=== PATIENT | female | born 1990 | race Caucasian/White ===

== ENCOUNTER 2021-05-15 17:27 | Emergency (ER) | payer SELFPAY ==
--- NOTE | 2021-05-15 17:49 | EDM.PDOC ---
ED HPI GENERAL MEDICAL PROBLEM - General Chief Complaint: ENT Problem Stated Complaint: ear pain Time Seen by Provider: 05/15/21 17:40 Source of Information: Reports: Patient History Limitations: Reports: No Limitations - History of Present Illness INITIAL COMMENTS - FREE TEXT/NARRATIVE: This patient is a 30 year old female that presents to the ER. Patient reports that for 1 week having left ear pain and congestion. She reports she has not been seen by PCP or anyone else for this 1 week complaint. Patient denies abx or any meds for it. Patient denies encinas, dizziness, n, v, d, f, cough. Onset Date: 05/08/21 Duration: Week(s): (1) Quality: Reports: Ache Severity: Moderate Improves with: Reports: None Worsens with: Reports: None Associated Symptoms: Reports: No Other Symptoms. Denies: Confusion, Chest Pain, Cough, cough w sputum, Diaphoresis, Fever/Chills, Headaches, Loss of Appetite, Malaise, Nausea/Vomiting, Rash, Seizure, Shortness of Breath, Syncope, Weakness Left Ear Pain Score (Numeric/FACES): 10 - Related Data Allergies Allergy/AdvReac Type Severity Reaction Status Date / Time No Known Allergies Allergy Verified 05/15/21 17:29 Home Meds: Home Meds Amoxicillin 1,000 mg PO TID 10 Days #60 tab 05/15/21 [Rx] PARoxetine HCL [Paroxetine HCl] 20 mg PO DAILY 05/15/21 [History] busPIRone HCl [Buspirone HCl] 15 mg PO BID 05/15/21 [History] hydrOXYzine pamoate [Hydroxyzine Pamoate] 1 - 2 cap PO ASDIRECTED PRN 05/15/21 [History] traZODone HCl [Trazodone HCl] 50 - 100 mg PO BEDTIME PRN 05/15/21 [History] Past Medical History Psychiatric History: Reports: Anxiety, Depression - Infectious Disease History Infectious Disease History: Reports: None - Past Surgical History GI Surgical History: Reports: Cholecystectomy Female Surgical History: Reports: Section Social & Family History - Tobacco Use Tobacco Use Status *Q: Never Tobacco User - Caffeine Use Caffeine Use: Reports: Coffee - Recreational Drug Use Recreational Drug Use: No ED ROS ENT - Review of Systems Review Of Systems: See Below Constitutional: Reports: No Symptoms HEENT: Reports: Ear Pain (left), Sinus Problem (congestion). Denies: Rhinitis Respiratory: Reports: No Symptoms. Denies: Shortness of Breath, Cough, Sputum Cardiovascular: Reports: No Symptoms Endocrine: Reports: No Symptoms GI/Abdominal: Reports: No Symptoms : Reports: No Symptoms Musculoskeletal: Reports: No Symptoms Skin: Reports: No Symptoms Neurological: Reports: No Symptoms Psychiatric: Reports: No Symptoms Hematologic/Lymphatic: Reports: No Symptoms Immunologic: Reports: No Symptoms ED EXAM, ENT - Physical Exam Exam: See Below Exam Limited By: No Limitations General Appearance: Alert, WD/WN, No Apparent Distress Eye Exam: Bilateral Eye: PERRL Ears: Normal External Exam, Normal Canal, Hearing Grossly Normal, TM Bulging (left), TM Dullness (left), TM Erythema (left). No: Hearing Loss, Auricular Erythema, Auricular Tenderness, TM Perforation, TM Obscured by Cerumen Nose: Normal Inspection, Normal Mucousa, No Blood Mouth/Throat: Normal Inspection, Normal Gums, Normal Lips, Normal Oropharynx, Normal Teeth Head: Atraumatic, Normocephalic Neck: Normal Inspection, Supple, Non-Tender, Full Range of Motion Respiratory/Chest: No Respiratory Distress, Lungs Clear, Normal Breath Sounds, No Accessory Muscle Use Cardiovascular: Normal Peripheral Pulses, Regular Rate, Rhythm, No Edema, No Gallop, No JVD, No Murmur, No Rub Back: Normal Inspection Extremities: Normal Inspection, No Pedal Edema, Normal Capillary Refill Neurological: Alert, Oriented Psychiatric: Normal Affect, Normal Mood Skin: Warm, Dry, Intact, Normal Color, No Rash Lymphatic: No Adenopathy Course - Vital Signs Last Recorded V/S: Last Vital Signs Temp 98.6 F 05/15/21 17:27 Pulse 88 05/15/21 17:27 Resp 16 05/15/21 17:27 BP 128/89 05/15/21 17:27 Pulse Ox 98 05/15/21 17:27 - Orders/Labs/Meds Meds: Medications Discontinued Medications Generic Name Dose Route Start Last Admin Trade Name Pina PRN Reason Stop Dose Admin Amoxicillin 1,000 mg 05/15/21 17:49 Amoxicillin 500 Mg Cap PO 05/15/21 17:50 ONETIME ONE - Re-Assessments/Exams Free Text/Narrative Re-Assessment/Exam: 05/15/21 17:40 Patient reports something for pain. She was educated about over the counter Tylenol, Motrin, and ear drops. Departure - Departure Time of Disposition: 17:46 Disposition: Home, Self-Care 01 Condition: Good Clinical Impression: Otitis media Qualifiers: Otitis media type: suppurative Chronicity: acute Laterality: left Recurrence: non-recurrent Spontaneous tympanic membrane rupture: without spontaneous rupture Qualified Code(s): H66.002 - Acute suppurative otitis media without spontaneous rupture of ear drum, left ear - Discharge Information *PRESCRIPTION DRUG MONITORING PROGRAM REVIEWED*: Not Applicable *COPY OF PRESCRIPTION DRUG MONITORING REPORT IN PATIENT SAM: Not Applicable Prescriptions: Amoxicillin 1,000 mg PO TID 10 Days #60 tab Instructions: Otitis Media, Adult, [id number] Forms: ED Department Discharge Additional Instructions: Followup with your primary care provider for a recheck in 72 hours if needed Return to the ER for worsening of condition or emergent concerns Motrin or Tylenol for pain Over the counter ear drops for pain Nasal sprays for congestion such as Afrin (May only use for 3 days) Amoxicillin 500mg 2 pills three times a day for 10 days #60 no refill Sent to [facility] Sepsis Event Note (ED) - Evaluation Sepsis Screening Result: No Definite Risk - Focused Exam Vital Signs: Vital Signs Temp Pulse Resp BP Pulse Ox 05/15/21 17:27 98.6 F 88 16 128/89 98 - Assessment/Plan Plan: PLEASE SEE RN NOTE FOR PFSH
[2021-05-15] MEDS: Amoxicillin 500 MG Cap PO ONE (17:52)
== END 2021-05-15 17:55 | disposition home or self-care (01) ==
LOC: CC.ED 17:27
DX: H66.002 Acute suppurative otitis media without spontaneous rupture of ear drum, left ear (principal)
CPT/HCPCS: 99283; A9270-GY

== ENCOUNTER 2021-09-18 17:31 | Emergency (ER) | payer SELFPAY ==
--- NOTE | 2021-09-18 17:53 | EDM.PDOC ---
ED HPI GENERAL MEDICAL PROBLEM - General Chief Complaint: Headache Stated Complaint: [place], dizzy for 1 week Time Seen by Provider: 09/18/21 17:38 Source of Information: Reports: Patient History Limitations: Reports: No Limitations - History of Present Illness INITIAL COMMENTS - FREE TEXT/NARRATIVE: Lucretia is a 30 year old female who presents today with a week long headache that is getting worse. Relates has never had a headache like this. Feels like "head is going to blow off". Feels dizzy. Vision is blurry at times. Admits to light sensitivity. Nausea without vomiting. No cough, chest congestion, sore throat or fever. Did test recently for Covid and was negative. States hands and feet feel tingly at times but no other neurological changes. Onset: Gradual Duration: Day(s):, Getting Worse Location: Reports: Head Quality: Reports: Throbbing Severity: Severe Context: Denies: Trauma Associated Symptoms: Reports: Headaches, Nausea/Vomiting. Denies: Confusion, Chest Pain, Cough, Diaphoresis, Fever/Chills, Loss of Appetite, Malaise, Shortness of Breath, Weakness Headache Pain Score (Numeric/FACES): 10 - Related Data Allergies Allergy/AdvReac Type Severity Reaction Status Date / Time No Known Allergies Allergy Verified 09/18/21 17:32 Home Meds: Home Meds PARoxetine HCL [Paroxetine HCl] 20 mg PO DAILY 05/15/21 [History] busPIRone HCl [Buspirone HCl] 15 mg PO BID 05/15/21 [History] hydrOXYzine pamoate [Hydroxyzine Pamoate] 1 - 2 cap PO ASDIRECTED PRN 05/15/21 [History] traZODone HCl [Trazodone HCl] 50 - 100 mg PO BEDTIME PRN 05/15/21 [History] Past Medical History Psychiatric History: Reports: Anxiety, Depression - Infectious Disease History Infectious Disease History: Reports: None - Past Surgical History GI Surgical History: Reports: Cholecystectomy Female Surgical History: Reports: Section Social & Family History - Family History Family Medical History: No Pertinent Family History - Tobacco Use Tobacco Use Status *Q: Never Tobacco User - Caffeine Use Caffeine Use: Reports: Coffee - Recreational Drug Use Recreational Drug Use: No ED ROS GENERAL - Review of Systems Review Of Systems: See Below Constitutional: Reports: Fatigue. Denies: Fever, Chills, Malaise, Weakness, Decreased Appetite HEENT: Reports: Vision Change. Denies: Ear Pain, Rhinitis, Sinus Problem, Throat Pain, Vertigo Respiratory: Denies: Shortness of Breath, Cough Cardiovascular: Reports: Lightheadedness. Denies: Chest Pain, Edema Endocrine: Denies: Fatigue GI/Abdominal: Reports: Nausea. Denies: Abdominal Pain, Constipation, Diarrhea, Vomiting : Reports: No Symptoms Musculoskeletal: Denies: Neck Pain Skin: Reports: No Symptoms Neurological: Reports: Dizziness, Headache, Weakness - Physical Exam Exam: See Below Exam Limited By: No Limitations General Appearance: Alert, WD/WN, No Apparent Distress Eye Exam: Bilateral Eye: EOMI, PERRL Ears: Normal External Exam, Normal TMs Nose: Normal Inspection, Normal Mucosa, No Blood Throat/Mouth: Normal Inspection, Normal Oropharynx Head Exam: Normocephalic Neck: Normal Inspection, Supple, Non-Tender Respiratory/Chest: No Respiratory Distress, Lungs Clear, Normal Breath Sounds Cardiovascular: Regular Rate, Rhythm GI/Abdominal: Normal Bowel Sounds, Soft, Non-Tender Neuro Exam (Abbreviated): Alert, Oriented, CN II-XII Intact, Normal Cognition, Normal Gait, Normal Reflexes, No Motor/Sensory Deficits Extremities: Normal Inspection, No Pedal Edema Skin Exam: Warm, Dry Course - Vital Signs Last Recorded V/S: Last Vital Signs Temp 98.1 F 09/18/21 17:33 Pulse 93 09/18/21 17:33 Resp 16 09/18/21 17:33 BP 130/54 L 09/18/21 17:33 Pulse Ox 100 09/18/21 17:33 - Orders/Labs/Meds Orders: Active Orders 24 hr Category Date Time Status Head wo Cont [CT] Stat Exams 09/18/21 17:47 Taken Departure - Departure Time of Disposition: 18:35 Disposition: Home, Self-Care 01 Condition: Good Clinical Impression: Migraine - Discharge Information *PRESCRIPTION DRUG MONITORING PROGRAM REVIEWED*: No *COPY OF PRESCRIPTION DRUG MONITORING REPORT IN PATIENT SAM: No Instructions: Migraine Headache, [id number] Forms: ED Department Discharge Additional Instructions: 1. Push fluids 2. Alternate ibuprofen and tylenol for further headache 3. Ice or heat to neck may help alleviate discomfort 4. Follow up with primary care provider for persistent concerns. Sepsis Event Note (ED) - Evaluation Sepsis Screening Result: No Definite Risk - Focused Exam Vital Signs: Vital Signs Temp Pulse Resp BP Pulse Ox 09/18/21 17:33 98.1 F 93 16 130/54 L 100 - My Orders Last 24 Hours: My Active Orders 09/18/21 17:47 Head wo Cont [CT] Stat - Assessment/Plan Last 24 Hours: My Active Orders 09/18/21 17:47 Head wo Cont [CT] Stat
[2021-09-18] MEDS ORDERED: Ketorolac 60 MG/2 ML SDV IM ONE (18:33)
[2021-09-18] MEDS ORDERED: Ondansetron 4 MG/2 ML SDV IM STA (18:33)
== END 2021-09-18 18:54 | disposition home or self-care (01) ==
LOC: CC.ED 17:31
DX: G43.909 Migraine, unspecified, not intractable, without status migrainosus (principal)
CPT/HCPCS: 70450; 96372; 99284; J1885; J2405

== ENCOUNTER 2021-11-04 20:38 | Inpatient (IN) | payer BC ==
[2021-11-04] MEDS ORDERED: Sodium Chloride 0.9% 10 ML Syringe FLUSH PRN (21:15)
--- NOTE | 2021-11-04 21:58 | EDM.PDOC ---
ED HPI GENERAL MEDICAL PROBLEM - General Chief Complaint: Respiratory Problem Stated Complaint: cough Time Seen by Provider: 11/04/21 21:02 Source of Information: Reports: Patient History Limitations: Reports: No Limitations - History of Present Illness INITIAL COMMENTS - FREE TEXT/NARRATIVE: This is a 30-year-old female patient that presents to the emergency department with complaints of chest pain, shortness of breath, nasal congestion with onset being about 1 week ago on since Sunday. Reports that symptoms really have not changed since that time. Denies loss of taste, fever, or nausea vomiting. Denies any feelings of being sweaty. States she just does not feel well. All the symptoms started at approximately the same time. Patient describes the chest pain to the anterior chest and denies radiation of pain. States her shortness of breath is all the time and remains about the same with exertion. Onset: Gradual Onset Date: 10/29/21 Location: Reports: Chest Severity: Moderate Worsens with: Reports: None Associated Symptoms: Reports: Shortness of Breath. Denies: Nausea/Vomiting Treatments TRANSPORTATION LEAD: Reports: NSAIDS Chest Pain Score (Numeric/FACES): 5 - Related Data Allergies Allergy/AdvReac Type Severity Reaction Status Date / Time No Known Allergies Allergy Verified 11/04/21 23:16 Home Meds: Home Meds PARoxetine HCL [Paroxetine HCl] 20 mg PO DAILY 05/15/21 [History] busPIRone HCl [Buspirone HCl] 15 mg PO BID 05/15/21 [History] hydrOXYzine pamoate [Hydroxyzine Pamoate] 1 - 2 cap PO ASDIRECTED PRN 05/15/21 [History] traZODone HCl [Trazodone HCl] 50 - 100 mg PO BEDTIME PRN 05/15/21 [History] Naproxen 1 tab PO ASDIRECTED PRN 11/04/21 [History] Past Medical History Psychiatric History: Reports: Anxiety, Depression - Infectious Disease History Infectious Disease History: Reports: None - Past Surgical History GI Surgical History: Reports: Cholecystectomy Female Surgical History: Reports: Section Social & Family History - Family History Family Medical History: No Pertinent Family History - Caffeine Use Caffeine Use: Reports: Coffee ED ROS GENERAL - Review of Systems Review Of Systems: See Below Constitutional: Reports: Weakness, Fatigue. Denies: Fever, Chills HEENT: Reports: Sinus Problem (Nasal congestion) Respiratory: Reports: Shortness of Breath, Cough, Other (Sneezing) Cardiovascular: Reports: Chest Pain Endocrine: Reports: Fatigue GI/Abdominal: Denies: Abdominal Pain, Nausea, Vomiting : Denies: Discharge, Dysuria, Flank Pain Musculoskeletal: Denies: Neck Pain, Shoulder Pain, Arm Pain, Back Pain Skin: Reports: Cyanosis Neurological: Denies: Confusion, Dizziness Psychiatric: Reports: No Symptoms Hematologic/Lymphatic: Reports: No Symptoms Immunologic: Reports: No Symptoms ED EXAM, GENERAL - Physical Exam Exam: See Below Exam Limited By: No Limitations General Appearance: Alert, Moderate Distress Eye Exam: Bilateral Eye: Normal Inspection, PERRL Ears: Normal External Exam, Hearing Grossly Normal Nose: No Blood, Nasal Drainage Throat/Mouth: Normal Voice, Perioral Cyanosis, Other (Dry lips) Head: Atraumatic, Normocephalic Neck: Normal Inspection, Supple, Non-Tender, Full Range of Motion Respiratory/Chest: Lungs Clear, Decreased Breath Sounds, Other (Anterior mid upper chest pain) Cardiovascular: Regular Rate, Rhythm, No Gallop, No Murmur, No Rub GI/Abdominal: Normal Bowel Sounds, Soft, Non-Tender, No Distention, No Mass (Female) Exam: Deferred Rectal (Female) Exam: Deferred Back Exam: Normal Inspection, Full Range of Motion Extremities: Normal Inspection, Normal Range of Motion, No Pedal Edema Neurological: Alert, Oriented, Normal Cognition Psychiatric: Normal Affect, Normal Mood Skin Exam: Warm, Dry, Intact Lymphatic: No Adenopathy Course - Vital Signs Last Recorded V/S: Last Vital Signs Temp 97.2 F 11/04/21 23:12 Pulse 97 11/04/21 23:12 Resp 11 L 11/04/21 23:12 BP 105/72 11/04/21 23:12 Pulse Ox 92 L 11/04/21 23:12 - Orders/Labs/Meds Orders: Active Orders 24 hr Category Date Time Status Oxygen Therapy Adult [Oxygen Therapy] [RC] ASDIRECTED Care 11/04/21 21:15 Active Ang Chest [CT] Stat Exams 11/04/21 22:03 Taken CULTURE BLOOD [BC] Stat Lab 11/04/21 23:35 Received CULTURE BLOOD [BC] Stat Lab 11/04/21 23:37 Received INR,PT,PROTHROMBIN TIME [COAG] Stat Lab 11/05/21 00:30 Received Azithromycin [Zithromax] 500 mg Med 11/04/21 23:30 Active Sodium Chloride 0.9% [Normal Saline AdvBag] 250 ml IV Q24H Sodium Chloride 0.9% [Normal Saline] 1,000 ml Med 11/04/21 23:00 Active IV ASDIRECTED Sodium Chloride 0.9% [Saline Flush] Med 11/04/21 21:15 Active 10 ml FLUSH ASDIRECTED PRN Blood Culture x2 Reflex Set [OM.PC] Stat Oth 11/04/21 23:20 Ordered Saline Lock Insert [OM.PC] Routine Oth 11/04/21 21:15 Ordered Medication Orders Sodium Chloride (Normal Saline) 1,000 mls @ 999 mls/hr IV ASDIRECTED ANDREAS Last Admin: 11/04/21 23:00 Dose: 999 mls/hr Documented by: CHARMAINE Azithromycin 500 mg/ Sodium (Chloride) 250 mls @ 250 mls/hr IV Q24H ANDREAS Last Admin: 11/05/21 00:01 Dose: 250 mls/hr Documented by: CHARMAINE Sodium Chloride (Sodium Chloride 0.9% 10 Ml Syringe) 10 ml FLUSH ASDIRECTED PRN PRN Reason: Keep Vein Open Labs: Laboratory Tests 11/04/21 11/04/21 11/04/21 Range/Units 21:25 21:25 21:25 WBC 14.4 H (4.0-11.0) 10^3/uL RBC 4.69 (4.00-5.50) x10^6/uL Hgb 13.4 (12.0-16.0) g/dL Hct 41.2 (37.0-47.0) % MCV 87.8 (83.0-97.0) fL MCH 28.6 (27.0-32.0) pg MCHC 32.5 (32.0-36.0) g/dL RDW Coeff of Amanuel 12.9 (11.0-15.0) % Plt Count 312 (150-400) 10^3/uL Immature Gran % (Auto) 1.0 (0.0-4.9) % Neut % (Auto) 79.8 H (41-71) % Lymph % (Auto) 11.8 L (24-44) % [place] % (Auto) 7.2 (0-10) % Eos % (Auto) 0.1 (0-6) % Baso % (Auto) 0.1 (0-1) % Neut # (Auto) 11.49 H (1.80-8.00) x10^3/uL Lymph # (Auto) 1.70 (0.60-5.00) 10^3/uL [place] # (Auto) 1.03 (0.00-1.50) 10^3/uL Eos # (Auto) 0.02 (0.00-1.50) 10^3/uL Baso # (Auto) 0.02 (0.00-0.50) 10^3/uL Immature Gran # (Auto) 0.14 (0.00-0.49) 10^3/uL D-Dimer, Quantitative 4.21 H (0.00-0.50) Sodium (136-145) mEq/L Potassium (3.5-5.0) mEq/L Chloride (98-106) mEq/L Carbon Dioxide (21-32) mmol/L BUN (7-18) mg/dL Creatinine (0.6-1.0) mg/dL Est Cr Clr Drug Dosing mL/min Estimated GFR (MDRD) (>=60) mL/min Glucose (75-99) mg/dL Lactic Acid (0.4-2.0) mmol/L Calcium (8.4-10.1) mg/dL Total Bilirubin (0.0-1.0) mg/dL AST (15-37) U/L ALT (12-78) U/L Alkaline Phosphatase (46-116) U/L Troponin I High Sens (<=51) pg/mL C-Reactive Protein (0.2-0.8) mg/dL Total Protein (6.4-8.2) g/dL Albumin (3.4-5.0) g/dL Urine Color (YELLOW) Urine Appearance (CLEAR) Urine pH (4.5-8.0) Ur Specific [place] (1.003-1.020) Urine Protein (NEGATIVE) mg/dL Urine Glucose (UA) (NEGATIVE) mg/dL Urine Ketones (NEGATIVE) mg/dL Urine Occult Blood (NEGATIVE) Urine Nitrite (NEGATIVE) Urine Bilirubin (NEGATIVE) Urine Urobilinogen (0.2-1.0) EU/dL Ur Leukocyte Esterase (NEGATIVE) Urine RBC (0-5) /HPF Urine WBC (0-5) /HPF Ur Epithelial Cells (NOT SEEN) /HPF Urine HCG, Qual Urine Opiates Screen (NEGATIVE) Ur Oxycodone Screen (NEGATIVE) Urine Methadone Screen (NEGATIVE) Ur Barbiturates Screen (NEGATIVE) U Tricyclic Antidepress (NEGATIVE) Ur Phencyclidine Scrn (NEGATIVE) Ur Amphetamine Screen (NEGATIVE) U Methamphetamines Scrn (NEGATIVE) Urine MDMA Screen (NEGATIVE) U Benzodiazepines Scrn (NEGATIVE) Urine Cocaine Screen (NEGATIVE) U Marijuana (THC) Screen (NEGATIVE) Ethyl Alcohol (0-3) mg/dL SARS CoV-2 RNA Rapid DEBORA Negative (NEGATIVE) 11/04/21 11/04/21 11/04/21 Range/Units 21:25 22:30 22:30 WBC (4.0-11.0) 10^3/uL RBC (4.00-5.50) x10^6/uL Hgb (12.0-16.0) g/dL Hct (37.0-47.0) % MCV (83.0-97.0) fL MCH (27.0-32.0) pg MCHC (32.0-36.0) g/dL RDW Coeff of Amanuel (11.0-15.0) % Plt Count (150-400) 10^3/uL Immature Gran % (Auto) (0.0-4.9) % Neut % (Auto) (41-71) % Lymph % (Auto) (24-44) % [place] % (Auto) (0-10) % Eos % (Auto) (0-6) % Baso % (Auto) (0-1) % Neut # (Auto) (1.80-8.00) x10^3/uL Lymph # (Auto) (0.60-5.00) 10^3/uL [place] # (Auto) (0.00-1.50) 10^3/uL Eos # (Auto) (0.00-1.50) 10^3/uL Baso # (Auto) (0.00-0.50) 10^3/uL Immature Gran # (Auto) (0.00-0.49) 10^3/uL D-Dimer, Quantitative (0.00-0.50) Sodium 137 (136-145) mEq/L Potassium 4.3 (3.5-5.0) mEq/L Chloride 104 (98-106) mEq/L Carbon Dioxide 32 (21-32) mmol/L BUN 41 H D (7-18) mg/dL Creatinine 1.6 H D (0.6-1.0) mg/dL Est Cr Clr Drug Dosing 45.84 mL/min Estimated GFR (MDRD) 38 L (>=60) mL/min Glucose 159 H D (75-99) mg/dL Lactic Acid (0.4-2.0) mmol/L Calcium 8.1 L (8.4-10.1) mg/dL Total Bilirubin 0.9 (0.0-1.0) mg/dL AST 1090 H* (15-37) U/L ALT 1431 H* (12-78) U/L Alkaline Phosphatase 85 (46-116) U/L Troponin I High Sens 141.1 H* (<=51) pg/mL C-Reactive Protein 16.0 H (0.2-0.8) mg/dL Total Protein 7.0 (6.4-8.2) g/dL Albumin 3.5 (3.4-5.0) g/dL Urine Color Yellow (YELLOW) Urine Appearance Clear (CLEAR) Urine pH 6.0 (4.5-8.0) Ur Specific [place] 1.025 H (1.003-1.020) Urine Protein 100 H (NEGATIVE) mg/dL Urine Glucose (UA) Negative (NEGATIVE) mg/dL Urine Ketones Negative (NEGATIVE) mg/dL Urine Occult Blood Large H (NEGATIVE) Urine Nitrite Negative (NEGATIVE) Urine Bilirubin Negative (NEGATIVE) Urine Urobilinogen 0.2 (0.2-1.0) EU/dL Ur Leukocyte Esterase Trace H (NEGATIVE) Urine RBC 5-10 H (0-5) /HPF Urine WBC Not seen (0-5) /HPF Ur Epithelial Cells Moderate H (NOT SEEN) /HPF Urine HCG, Qual Negative Urine Opiates Screen (NEGATIVE) Ur Oxycodone Screen (NEGATIVE) Urine Methadone Screen (NEGATIVE) Ur Barbiturates Screen (NEGATIVE) U Tricyclic Antidepress (NEGATIVE) Ur Phencyclidine Scrn (NEGATIVE) Ur Amphetamine Screen (NEGATIVE) U Methamphetamines Scrn (NEGATIVE) Urine MDMA Screen (NEGATIVE) U Benzodiazepines Scrn (NEGATIVE) Urine Cocaine Screen (NEGATIVE) U Marijuana (THC) Screen (NEGATIVE) Ethyl Alcohol (0-3) mg/dL SARS CoV-2 RNA Rapid DEBORA (NEGATIVE) 11/04/21 11/04/21 11/04/21 Range/Units 23:35 23:37 23:37 WBC (4.0-11.0) 10^3/uL RBC (4.00-5.50) x10^6/uL Hgb (12.0-16.0) g/dL Hct (37.0-47.0) % MCV (83.0-97.0) fL MCH (27.0-32.0) pg MCHC (32.0-36.0) g/dL RDW Coeff of Amanuel (11.0-15.0) % Plt Count (150-400) 10^3/uL Immature Gran % (Auto) (0.0-4.9) % Neut % (Auto) (41-71) % Lymph % (Auto) (24-44) % [place] % (Auto) (0-10) % Eos % (Auto) (0-6) % Baso % (Auto) (0-1) % Neut # (Auto) (1.80-8.00) x10^3/uL Lymph # (Auto) (0.60-5.00) 10^3/uL [place] # (Auto) (0.00-1.50) 10^3/uL Eos # (Auto) (0.00-1.50) 10^3/uL Baso # (Auto) (0.00-0.50) 10^3/uL Immature Gran # (Auto) (0.00-0.49) 10^3/uL D-Dimer, Quantitative (0.00-0.50) Sodium (136-145) mEq/L Potassium (3.5-5.0) mEq/L Chloride (98-106) mEq/L Carbon Dioxide (21-32) mmol/L BUN (7-18) mg/dL Creatinine (0.6-1.0) mg/dL Est Cr Clr Drug Dosing mL/min Estimated GFR (MDRD) (>=60) mL/min Glucose (75-99) mg/dL Lactic Acid 1.6 (0.4-2.0) mmol/L Calcium (8.4-10.1) mg/dL Total Bilirubin (0.0-1.0) mg/dL AST (15-37) U/L ALT (12-78) U/L Alkaline Phosphatase (46-116) U/L Troponin I High Sens (<=51) pg/mL C-Reactive Protein (0.2-0.8) mg/dL Total Protein (6.4-8.2) g/dL Albumin (3.4-5.0) g/dL Urine Color (YELLOW) Urine Appearance (CLEAR) Urine pH (4.5-8.0) Ur Specific [place] (1.003-1.020) Urine Protein (NEGATIVE) mg/dL Urine Glucose (UA) (NEGATIVE) mg/dL Urine Ketones (NEGATIVE) mg/dL Urine Occult Blood (NEGATIVE) Urine Nitrite (NEGATIVE) Urine Bilirubin (NEGATIVE) Urine Urobilinogen (0.2-1.0) EU/dL Ur Leukocyte Esterase (NEGATIVE) Urine RBC (0-5) /HPF Urine WBC (0-5) /HPF Ur Epithelial Cells (NOT SEEN) /HPF Urine HCG, Qual Urine Opiates Screen Negative (NEGATIVE) Ur Oxycodone Screen Negative (NEGATIVE) Urine Methadone Screen Negative (NEGATIVE) Ur Barbiturates Screen Negative (NEGATIVE) U Tricyclic Antidepress Negative (NEGATIVE) Ur Phencyclidine Scrn Negative (NEGATIVE) Ur Amphetamine Screen Negative (NEGATIVE) U Methamphetamines Scrn Negative (NEGATIVE) Urine MDMA Screen Negative (NEGATIVE) U Benzodiazepines Scrn Negative (NEGATIVE) Urine Cocaine Screen Negative (NEGATIVE) U Marijuana (THC) Screen Negative (NEGATIVE) Ethyl Alcohol < 3 (0-3) mg/dL SARS CoV-2 RNA Rapid DEBORA (NEGATIVE) Meds: Medications Generic Name Dose Route Start Last Admin Trade Name Freq PRN Reason Stop Dose Admin Sodium Chloride 1,000 mls @ 999 mls/hr 11/04/21 23:00 11/04/21 23:00 Normal Saline IV 999 mls/hr ASDIRECTED ANDREAS Administration Azithromycin 500 mg/ Sodium 250 mls @ 250 mls/hr 11/04/21 23:30 11/05/21 00:01 Chloride IV 250 mls/hr Q24H ANDREAS Administration Sodium Chloride 10 ml 11/04/21 21:15 Sodium Chloride 0.9% 10 Ml Syringe FLUSH ASDIRECTED PRN Keep Vein Open Discontinued Medications Generic Name Dose Route Start Last Admin Trade Name Pina PRN Reason Stop Dose Admin Azithromycin Confirm 11/05/21 00:17 Azithromycin 500 Mg Vial Administered 11/05/21 00:18 Dose 500 mg .ROUTE .STK-MED ONE Ceftriaxone Sodium 1 gm 11/04/21 23:22 11/05/21 00:00 Ceftriaxone 1 Gm Vial IVPUSH 11/04/21 23:23 1 gm ONETIME ONE Administration Sodium Chloride Confirm 11/04/21 22:35 11/04/21 23:03 Normal Saline Administered 11/04/21 22:36 Not Given Dose 1,000 mls @ as directed .ROUTE .STK-MED ONE Sodium Chloride 1,000 mls @ 999 mls/hr 11/04/21 22:47 Normal Saline IV 11/04/21 23:47 .BOLUS ONE Iopamidol 100 ml 11/04/21 22:07 11/04/21 22:48 Iopamidol 755 Mg/Ml 100 Ml Bottle IVPUSH 11/04/21 22:08 100 ml ONETIME ONE Administration - Re-Assessments/Exams Free Text/Narrative Re-Assessment/Exam: This is a 30-year-old female patient that presented to the emergency department with onset of chest pain, shortness of breath, and nasal congestion about 6 days ago. Patient states that she just does not feel well. A CBC, CMP, CRP, troponin, D-dimer, UA, and UA hCG were collected. Please see lab results. Troponin is elevated, AST ALT are elevated, D-dimer is elevated, white blood cell count is elevated. A CTA of the chest was completed and will await final read from radiology. An EKG was also obtained. The EKG was reviewed showing a normal sinus rhythm with possible infarct although no definite ST elevation or depression was noted. Free Text/Narrative Re-Assessment/Exam: ER progress note: Spoke with a [facility] hospitalist regarding patient. They are currently unable to accept transfer. After discussing patient's history and physical exam along with lab abnormalities, EKG and CTA chest he suggested further labs to include lactic acid, blood cultures x2, blood alcohol, and urine drug screen. Also suggested procalcitonin and hepatitis screen although those are send out tests and of no benefit at current time. He had pulled out the CTA of the chest and side no indication of PE, however there was evidence of possible right upper lobe pneumonia. Per his recommendation we will obtain labs available and administer 1 g of Rocephin and 500 mg of azithromycin IV. He also suggested calling the [facility]. Shortly after speaking with the hospitalist, the radiologist had called and confirmed findings of no PE and possible right upper lobe pneumonia. Awaiting a callback from the [facility] for further guidance. [facility] was also contacted and there is no ability to transfer to any tertiary care center in the state [facility] according to the [facility]. 11/04/21 23:15 Free Text/Narrative Re-Assessment/Exam: Spoke with internal medicine physician, Dr. Panda, at the [facility]. Discussed patient history and physical exam as well as lab findings, EKG, and CTA results. As well as the additional labs that were suggested by the [place] hospitalist. Dr. Panda suggested to treat the pneumonia with Rocephin and azithromycin unless it was believed that there is a concern for alcohol in which he would change the antibiotic to cefepime. An INR was ordered per recommendation and if normal he believes that the elevated liver enzymes are caused by a cellular injury. If elevated would be more indicative enteric liver disease. Also recommended to repeat a hepatic panel in about 8 hours. A Tylenol level is also discussed and if INR is elevated we will collect this for send out. [facility] also has no bed availability and unable to accept patient in transfer. Plan will be to admit patient to acute inpatient status. Repeat labs will be ordered as recommended. We will continue telemetry. And reevaluate based on laboratory findings and patient's physical condition. 11/05/21 00:05 Departure - Departure Time of Disposition: 00:26 Disposition: Admitted As Inpatient 65 Condition: Undetermined (Stable) Clinical Impression: Elevated liver enzymes, Elevated troponin Right upper lobe pneumonia Qualifiers: Pneumonia type: due to unspecified organism Qualified Code(s): J18.9 - Pneumonia, unspecified organism Elevated white blood cell count Qualifiers: Leukocytosis type: unspecified Qualified Code(s): D72.829 - Elevated white blood cell count, unspecified - Discharge Information *PRESCRIPTION DRUG MONITORING PROGRAM REVIEWED*: Not Applicable *COPY OF PRESCRIPTION DRUG MONITORING REPORT IN PATIENT SAM: Not Applicable Sepsis Event Note (ED) - Evaluation Sepsis Screening Result: No Definite Risk - Focused Exam Vital Signs: Vital Signs Temp Pulse Resp BP Pulse Ox 12/10/21 23:12 97.2 F 97 11 L 105/72 92 L 11/04/21 20:47 97 F 101 H 18 133/73 72 L - Problem List & Annotations (1) Elevated liver enzymes SNOMED Code(s): 624569364 Code(s): R74.8 - ABNORMAL LEVELS OF OTHER SERUM ENZYMES Status: Acute Priority: High Current Visit: Yes (2) Right upper lobe pneumonia SNOMED Code(s): 283503254 Code(s): J18.9 - PNEUMONIA, UNSPECIFIED ORGANISM Status: Acute Priority: High Current Visit: Yes Qualifiers: Pneumonia type: due to unspecified organism Qualified Code(s): J18.9 - Pneumonia, unspecified organism (3) Elevated troponin SNOMED Code(s): 076929798, 071039726, [id number] Code(s): R77.8 - OTHER SPECIFIED ABNORMALITIES OF PLASMA PROTEINS Status: Acute Priority: High Current Visit: Yes (4) Elevated white blood cell count SNOMED Code(s): 864530154, 987974126 Code(s): D72.829 - ELEVATED WHITE BLOOD CELL COUNT, UNSPECIFIED Status: Acute Priority: High Current Visit: Yes Qualifiers: Leukocytosis type: unspecified Qualified Code(s): D72.829 - Elevated white blood cell count, unspecified - Problem List Review Problem List Initiated/Reviewed/Updated: Yes - My Orders Last 24 Hours: My Active Orders 11/04/21 21:15 Oxygen Therapy Adult [Oxygen Therapy] [RC] ASDIRECTED Sodium Chloride 0.9% [Saline Flush] 10 ml FLUSH ASDIRECTED PRN Saline Lock Insert [OM.PC] Routine 11/04/21 23:00 Sodium Chloride 0.9% [Normal Saline] 1,000 ml IV ASDIRECTED 11/04/21 23:20 Blood Culture x2 Reflex Set [OM.PC] Stat 11/04/21 23:30 Azithromycin [Zithromax] 500 mg Sodium Chloride 0.9% [Normal Saline AdvBag] 250 ml IV Q24H 11/04/21 23:35 CULTURE BLOOD [BC] Stat 11/04/21 23:37 CULTURE BLOOD [BC] Stat 11/05/21 00:30 INR,PT,PROTHROMBIN TIME [COAG] Stat - Assessment/Plan Admission H&P: Please use this note as an admission H&P Last 24 Hours: My Active Orders 11/04/21 21:15 Oxygen Therapy Adult [Oxygen Therapy] [RC] ASDIRECTED Sodium Chloride 0.9% [Saline Flush] 10 ml FLUSH ASDIRECTED PRN Saline Lock Insert [OM.PC] Routine 11/04/21 23:00 Sodium Chloride 0.9% [Normal Saline] 1,000 ml IV ASDIRECTED 11/04/21 23:20 Blood Culture x2 Reflex Set [OM.PC] Stat 11/04/21 23:30 Azithromycin [Zithromax] 500 mg Sodium Chloride 0.9% [Normal Saline AdvBag] 250 ml IV Q24H 11/04/21 23:35 CULTURE BLOOD [BC] Stat 11/04/21 23:37 CULTURE BLOOD [BC] Stat 11/05/21 00:30 INR,PT,PROTHROMBIN TIME [COAG] Stat Assessment:: Right upper lobe pneumonia, elevated liver enzymes, elevated troponin, elevated WBC Plan: Admit acute care inpatient telemetry. Plan to repeat labs in morning. Continue antibiotics.
[2021-11-04] MEDS ORDERED: Iopamidol 755 Mg/ML 100 ML Bottle IVPUSH ONE (22:07)
[2021-11-04] MEDS ORDERED: Sodium Chloride 0.9% 1,000 ML ONE (22:35)
[2021-11-04] MEDS ORDERED: Sodium Chloride 0.9% 1,000 ML IV ONE (22:47)
[2021-11-04] MEDS ORDERED: Sodium Chloride 0.9% 1,000 ML IV SCH (23:00)
[2021-11-04] MEDS ORDERED: cefTRIAXone 1 GM Vial IVPUSH ONE (23:22)
[2021-11-04] MEDS ORDERED: Azithromycin 500 MG in Sodium Chloride 0.9% 250 ML IV SCH (23:30)
[2021-11-04 23:46] LABS: AMPHETAMINES,URINE NEGATIVE (NEGATIVE); BARBITURATES,URINE NEGATIVE (NEGATIVE); BENZODIAZEPINE,URINE NEGATIVE (NEGATIVE); MDMA (ECSTASY), URINE NEGATIVE (NEGATIVE); METHADONE,URINE NEGATIVE (NEGATIVE); METHAMPHETAMINES,URINE NEGATIVE (NEGATIVE); OPIATES,URINE NEGATIVE (NEGATIVE); OXYCODONE,URINE NEGATIVE (NEGATIVE); PHENCYCLIDINE,URINE NEGATIVE (NEGATIVE); TCA,URINE NEGATIVE (NEGATIVE)
[2021-11-05] MEDS ORDERED: Azithromycin 500 MG Vial ONE (00:17)
[2021-11-05] MEDS ORDERED: traZODone 50 MG Tab PO PRN ×2 (00:58→01:13)
[2021-11-05] MEDS ORDERED: Codeine/Promethazine 10-6.25 MG/5 ML Syrup 5 ML UD Cup PO PRN (01:25)
[2021-11-05] MEDS ORDERED: Sodium Chloride 0.9% 1,000 ML IV SCH (01:25)
[2021-11-05] MEDS ORDERED: Enoxaparin 30 MG/0.3 ML Syringe SUBCUT SCH (01:25)
[2021-11-05] MEDS: PARoxetine 20 MG Tab PO SCH (07:29)
[2021-11-05] MEDS: busPIRone 5 MG Tab PO SCH ×2 (07:29→19:41)
[2021-11-05] MEDS ORDERED: Lactated Ringers 1,000 ML IV ONE (10:15)
--- NOTE | 2021-11-05 10:32 | PCM.PN ---
- General Info Date of Service: 11/05/21 Admission Dx/Problem (Free Text): 1. Right upper lobe pneumonia 2. Elevated liver enzymes 3. Elevated troponin 4. Elevated WBC Subjective Update: Patient states that she is feeling better today. Denies chest pain and reports that her shortness of breath is improved. Reports feeling tired. Decreased appetite but was able to drink fluids this morning. Denies abdominal pain, nausea, or vomiting. Oxygen saturations 90-92% on 3 LPM via NC. HR 98-104. RR 18. BP 111/69. States she has been able to ambulate to bathroom. Functional Status: Reports: Pain Controlled - Review of Systems General: Reports: Weakness, Fatigue. Denies: Chills, Night Sweats HEENT: Reports: No Symptoms Pulmonary: Reports: Shortness of Breath (improved) Cardiovascular: Reports: Dyspnea on Exertion. Denies: Chest Pain, Palpitations Gastrointestinal: Reports: Decreased Appetite. Denies: Abdominal Pain, Consti pation, Diarrhea, Nausea, Vomiting Genitourinary: Denies: Dysuria, Frequency, Burning Musculoskeletal: Denies: Neck Pain, Shoulder Pain, Arm Pain, Leg Pain Skin: Denies: Cyanosis, Pallor Neurological: Denies: Confusion, Dizziness, Headache, Trouble Speaking Psychiatric: Reports: No Symptoms. Denies: Confusion - Patient Data Vitals - Most Recent: Last Vital Signs Temp 97.4 F 11/05/21 08:00 Pulse 95 11/05/21 08:00 Resp 16 11/05/21 08:00 BP 103/63 11/05/21 08:00 Pulse Ox 95 11/05/21 08:00 Weight - Most Recent: 256 lb 1.6 oz Lab Results Last 24 Hours: Laboratory Results - last 24 hr 11/04/21 11/04/21 11/04/21 Range/Units 21:25 21:25 21:25 WBC 14.4 H (4.0-11.0) 10^3/uL RBC 4.69 (4.00-5.50) x10^6/uL Hgb 13.4 (12.0-16.0) g/dL Hct 41.2 (37.0-47.0) % MCV 87.8 (83.0-97.0) fL MCH 28.6 (27.0-32.0) pg MCHC 32.5 (32.0-36.0) g/dL RDW Coeff of Amanuel 12.9 (11.0-15.0) % Plt Count 312 (150-400) 10^3/uL Immature Gran % (Auto) 1.0 (0.0-4.9) % Neut % (Auto) 79.8 H (41-71) % Lymph % (Auto) 11.8 L (24-44) % [place] % (Auto) 7.2 (0-10) % Eos % (Auto) 0.1 (0-6) % Baso % (Auto) 0.1 (0-1) % Neut # (Auto) 11.49 H (1.80-8.00) x10^3/uL Lymph # (Auto) 1.70 (0.60-5.00) 10^3/uL [place] # (Auto) 1.03 (0.00-1.50) 10^3/uL Eos # (Auto) 0.02 (0.00-1.50) 10^3/uL Baso # (Auto) 0.02 (0.00-0.50) 10^3/uL Immature Gran # (Auto) 0.14 (0.00-0.49) 10^3/uL PT (9.7-12.3) SEC INR (0.92-1.18) D-Dimer, Quantitative 4.21 H (0.00-0.50) Sodium (136-145) mEq/L Potassium (3.5-5.0) mEq/L Chloride (98-106) mEq/L Carbon Dioxide (21-32) mmol/L BUN (7-18) mg/dL Creatinine (0.6-1.0) mg/dL Est Cr Clr Drug Dosing mL/min Estimated GFR (MDRD) (>=60) mL/min Glucose (75-99) mg/dL Lactic Acid (0.4-2.0) mmol/L Calcium (8.4-10.1) mg/dL Total Bilirubin (0.0-1.0) mg/dL Direct Bilirubin (0.0-0.3) mg/dL Indirect Bilirubin mg/dL AST (15-37) U/L ALT (12-78) U/L Alkaline Phosphatase (46-116) U/L Troponin I High Sens (<=51) pg/mL C-Reactive Protein (0.2-0.8) mg/dL Total Protein (6.4-8.2) g/dL Albumin (3.4-5.0) g/dL Globulin (2.7-3.2) g/dL Albumin/Globulin Ratio (0.9-1.8) Urine Color (YELLOW) Urine Appearance (CLEAR) Urine pH (4.5-8.0) Ur Specific [place] (1.003-1.020) Urine Protein (NEGATIVE) mg/dL Urine Glucose (UA) (NEGATIVE) mg/dL Urine Ketones (NEGATIVE) mg/dL Urine Occult Blood (NEGATIVE) Urine Nitrite (NEGATIVE) Urine Bilirubin (NEGATIVE) Urine Urobilinogen (0.2-1.0) EU/dL Ur Leukocyte Esterase (NEGATIVE) Urine RBC (0-5) /HPF Urine WBC (0-5) /HPF Ur Epithelial Cells (NOT SEEN) /HPF Urine HCG, Qual Urine Opiates Screen (NEGATIVE) Ur Oxycodone Screen (NEGATIVE) Urine Methadone Screen (NEGATIVE) Ur Barbiturates Screen (NEGATIVE) U Tricyclic Antidepress (NEGATIVE) Ur Phencyclidine Scrn (NEGATIVE) Ur Amphetamine Screen (NEGATIVE) U Methamphetamines Scrn (NEGATIVE) Urine MDMA Screen (NEGATIVE) U Benzodiazepines Scrn (NEGATIVE) Urine Cocaine Screen (NEGATIVE) U Marijuana (THC) Screen (NEGATIVE) Ethyl Alcohol (0-3) mg/dL SARS CoV-2 RNA Rapid DEBORA Negative (NEGATIVE) 11/04/21 11/04/21 11/04/21 Range/Units 21:25 22:30 22:30 WBC (4.0-11.0) 10^3/uL RBC (4.00-5.50) x10^6/uL Hgb (12.0-16.0) g/dL Hct (37.0-47.0) % MCV (83.0-97.0) fL MCH (27.0-32.0) pg MCHC (32.0-36.0) g/dL RDW Coeff of Amanuel (11.0-15.0) % Plt Count (150-400) 10^3/uL Immature Gran % (Auto) (0.0-4.9) % Neut % (Auto) (41-71) % Lymph % (Auto) (24-44) % [place] % (Auto) (0-10) % Eos % (Auto) (0-6) % Baso % (Auto) (0-1) % Neut # (Auto) (1.80-8.00) x10^3/uL Lymph # (Auto) (0.60-5.00) 10^3/uL [place] # (Auto) (0.00-1.50) 10^3/uL Eos # (Auto) (0.00-1.50) 10^3/uL Baso # (Auto) (0.00-0.50) 10^3/uL Immature Gran # (Auto) (0.00-0.49) 10^3/uL PT (9.7-12.3) SEC INR (0.92-1.18) D-Dimer, Quantitative (0.00-0.50) Sodium 137 (136-145) mEq/L Potassium 4.3 (3.5-5.0) mEq/L Chloride 104 (98-106) mEq/L Carbon Dioxide 32 (21-32) mmol/L BUN 41 H D (7-18) mg/dL Creatinine 1.6 H D (0.6-1.0) mg/dL Est Cr Clr Drug Dosing 45.84 mL/min Estimated GFR (MDRD) 38 L (>=60) mL/min Glucose 159 H D (75-99) mg/dL Lactic Acid (0.4-2.0) mmol/L Calcium 8.1 L (8.4-10.1) mg/dL Total Bilirubin 0.9 (0.0-1.0) mg/dL Direct Bilirubin (0.0-0.3) mg/dL Indirect Bilirubin mg/dL AST 1090 H* (15-37) U/L ALT 1431 H* (12-78) U/L Alkaline Phosphatase 85 (46-116) U/L Troponin I High Sens 141.1 H* (<=51) pg/mL C-Reactive Protein 16.0 H (0.2-0.8) mg/dL Total Protein 7.0 (6.4-8.2) g/dL Albumin 3.5 (3.4-5.0) g/dL Globulin (2.7-3.2) g/dL Albumin/Globulin Ratio (0.9-1.8) Urine Color Yellow (YELLOW) Urine Appearance Clear (CLEAR) Urine pH 6.0 (4.5-8.0) Ur Specific [place] 1.025 H (1.003-1.020) Urine Protein 100 H (NEGATIVE) mg/dL Urine Glucose (UA) Negative (NEGATIVE) mg/dL Urine Ketones Negative (NEGATIVE) mg/dL Urine Occult Blood Large H (NEGATIVE) Urine Nitrite Negative (NEGATIVE) Urine Bilirubin Negative (NEGATIVE) Urine Urobilinogen 0.2 (0.2-1.0) EU/dL Ur Leukocyte Esterase Trace H (NEGATIVE) Urine RBC 5-10 H (0-5) /HPF Urine WBC Not seen (0-5) /HPF Ur Epithelial Cells Moderate H (NOT SEEN) /HPF Urine HCG, Qual Negative Urine Opiates Screen (NEGATIVE) Ur Oxycodone Screen (NEGATIVE) Urine Methadone Screen (NEGATIVE) Ur Barbiturates Screen (NEGATIVE) U Tricyclic Antidepress (NEGATIVE) Ur Phencyclidine Scrn (NEGATIVE) Ur Amphetamine Screen (NEGATIVE) U Methamphetamines Scrn (NEGATIVE) Urine MDMA Screen (NEGATIVE) U Benzodiazepines Scrn (NEGATIVE) Urine Cocaine Screen (NEGATIVE) U Marijuana (THC) Screen (NEGATIVE) Ethyl Alcohol (0-3) mg/dL SARS CoV-2 RNA Rapid DEBORA (NEGATIVE) 11/04/21 11/04/21 11/04/21 Range/Units 23:35 23:37 23:37 WBC (4.0-11.0) 10^3/uL RBC (4.00-5.50) x10^6/uL Hgb (12.0-16.0) g/dL Hct (37.0-47.0) % MCV (83.0-97.0) fL MCH (27.0-32.0) pg MCHC (32.0-36.0) g/dL RDW Coeff of Amanuel (11.0-15.0) % Plt Count (150-400) 10^3/uL Immature Gran % (Auto) (0.0-4.9) % Neut % (Auto) (41-71) % Lymph % (Auto) (24-44) % [place] % (Auto) (0-10) % Eos % (Auto) (0-6) % Baso % (Auto) (0-1) % Neut # (Auto) (1.80-8.00) x10^3/uL Lymph # (Auto) (0.60-5.00) 10^3/uL [place] # (Auto) (0.00-1.50) 10^3/uL Eos # (Auto) (0.00-1.50) 10^3/uL Baso # (Auto) (0.00-0.50) 10^3/uL Immature Gran # (Auto) (0.00-0.49) 10^3/uL PT (9.7-12.3) SEC INR (0.92-1.18) D-Dimer, Quantitative (0.00-0.50) Sodium (136-145) mEq/L Potassium (3.5-5.0) mEq/L Chloride (98-106) mEq/L Carbon Dioxide (21-32) mmol/L BUN (7-18) mg/dL Creatinine (0.6-1.0) mg/dL Est Cr Clr Drug Dosing mL/min Estimated GFR (MDRD) (>=60) mL/min Glucose (75-99) mg/dL Lactic Acid 1.6 (0.4-2.0) mmol/L Calcium (8.4-10.1) mg/dL Total Bilirubin (0.0-1.0) mg/dL Direct Bilirubin (0.0-0.3) mg/dL Indirect Bilirubin mg/dL AST (15-37) U/L ALT (12-78) U/L Alkaline Phosphatase (46-116) U/L Troponin I High Sens (<=51) pg/mL C-Reactive Protein (0.2-0.8) mg/dL Total Protein (6.4-8.2) g/dL Albumin (3.4-5.0) g/dL Globulin (2.7-3.2) g/dL Albumin/Globulin Ratio (0.9-1.8) Urine Color (YELLOW) Urine Appearance (CLEAR) Urine pH (4.5-8.0) Ur Specific [place] (1.003-1.020) Urine Protein (NEGATIVE) mg/dL Urine Glucose (UA) (NEGATIVE) mg/dL Urine Ketones (NEGATIVE) mg/dL Urine Occult Blood (NEGATIVE) Urine Nitrite (NEGATIVE) Urine Bilirubin (NEGATIVE) Urine Urobilinogen (0.2-1.0) EU/dL Ur Leukocyte Esterase (NEGATIVE) Urine RBC (0-5) /HPF Urine WBC (0-5) /HPF Ur Epithelial Cells (NOT SEEN) /HPF Urine HCG, Qual Urine Opiates Screen Negative (NEGATIVE) Ur Oxycodone Screen Negative (NEGATIVE) Urine Methadone Screen Negative (NEGATIVE) Ur Barbiturates Screen Negative (NEGATIVE) U Tricyclic Antidepress Negative (NEGATIVE) Ur Phencyclidine Scrn Negative (NEGATIVE) Ur Amphetamine Screen Negative (NEGATIVE) U Methamphetamines Scrn Negative (NEGATIVE) Urine MDMA Screen Negative (NEGATIVE) U Benzodiazepines Scrn Negative (NEGATIVE) Urine Cocaine Screen Negative (NEGATIVE) U Marijuana (THC) Screen Negative (NEGATIVE) Ethyl Alcohol < 3 (0-3) mg/dL SARS CoV-2 RNA Rapid DEBORA (NEGATIVE) 11/05/21 11/05/21 11/05/21 Range/Units 00:30 00:30 06:45 WBC 11.6 H (4.0-11.0) 10^3/uL RBC 4.41 (4.00-5.50) x10^6/uL Hgb 12.6 (12.0-16.0) g/dL Hct 38.8 (37.0-47.0) % MCV 88.0 (83.0-97.0) fL MCH 28.6 (27.0-32.0) pg MCHC 32.5 (32.0-36.0) g/dL RDW Coeff of Amanuel 13.0 (11.0-15.0) % Plt Count 295 (150-400) 10^3/uL Immature Gran % (Auto) 1.3 (0.0-4.9) % Neut % (Auto) 76.4 H (41-71) % Lymph % (Auto) 14.5 L (24-44) % [place] % (Auto) 7.3 (0-10) % Eos % (Auto) 0.3 (0-6) % Baso % (Auto) 0.2 (0-1) % Neut # (Auto) 8.83 H (1.80-8.00) x10^3/uL Lymph # (Auto) 1.68 (0.60-5.00) 10^3/uL [place] # (Auto) 0.84 (0.00-1.50) 10^3/uL Eos # (Auto) 0.03 (0.00-1.50) 10^3/uL Baso # (Auto) 0.02 (0.00-0.50) 10^3/uL Immature Gran # (Auto) 0.15 (0.00-0.49) 10^3/uL PT 13.2 H (9.7-12.3) SEC INR 1.23 H (0.92-1.18) D-Dimer, Quantitative (0.00-0.50) Sodium (136-145) mEq/L Potassium (3.5-5.0) mEq/L Chloride (98-106) mEq/L Carbon Dioxide (21-32) mmol/L BUN (7-18) mg/dL Creatinine (0.6-1.0) mg/dL Est Cr Clr Drug Dosing mL/min Estimated GFR (MDRD) (>=60) mL/min Glucose (75-99) mg/dL Lactic Acid (0.4-2.0) mmol/L Calcium (8.4-10.1) mg/dL Total Bilirubin (0.0-1.0) mg/dL Direct Bilirubin (0.0-0.3) mg/dL Indirect Bilirubin mg/dL AST (15-37) U/L ALT (12-78) U/L Alkaline Phosphatase (46-116) U/L Troponin I High Sens 164.3 H* (<=51) pg/mL C-Reactive Protein (0.2-0.8) mg/dL Total Protein (6.4-8.2) g/dL Albumin (3.4-5.0) g/dL Globulin (2.7-3.2) g/dL Albumin/Globulin Ratio (0.9-1.8) Urine Color (YELLOW) Urine Appearance (CLEAR) Urine pH (4.5-8.0) Ur Specific [place] (1.003-1.020) Urine Protein (NEGATIVE) mg/dL Urine Glucose (UA) (NEGATIVE) mg/dL Urine Ketones (NEGATIVE) mg/dL Urine Occult Blood (NEGATIVE) Urine Nitrite (NEGATIVE) Urine Bilirubin (NEGATIVE) Urine Urobilinogen (0.2-1.0) EU/dL Ur Leukocyte Esterase (NEGATIVE) Urine RBC (0-5) /HPF Urine WBC (0-5) /HPF Ur Epithelial Cells (NOT SEEN) /HPF Urine HCG, Qual Urine Opiates Screen (NEGATIVE) Ur Oxycodone Screen (NEGATIVE) Urine Methadone Screen (NEGATIVE) Ur Barbiturates Screen (NEGATIVE) U Tricyclic Antidepress (NEGATIVE) Ur Phencyclidine Scrn (NEGATIVE) Ur Amphetamine Screen (NEGATIVE) U Methamphetamines Scrn (NEGATIVE) Urine MDMA Screen (NEGATIVE) U Benzodiazepines Scrn (NEGATIVE) Urine Cocaine Screen (NEGATIVE) U Marijuana (THC) Screen (NEGATIVE) Ethyl Alcohol (0-3) mg/dL SARS CoV-2 RNA Rapid DEBORA (NEGATIVE) 11/05/21 11/05/21 Range/Units 06:45 06:45 WBC (4.0-11.0) 10^3/uL RBC (4.00-5.50) x10^6/uL Hgb (12.0-16.0) g/dL Hct (37.0-47.0) % MCV (83.0-97.0) fL MCH (27.0-32.0) pg MCHC (32.0-36.0) g/dL RDW Coeff of Amanuel (11.0-15.0) % Plt Count (150-400) 10^3/uL Immature Gran % (Auto) (0.0-4.9) % Neut % (Auto) (41-71) % Lymph % (Auto) (24-44) % [place] % (Auto) (0-10) % Eos % (Auto) (0-6) % Baso % (Auto) (0-1) % Neut # (Auto) (1.80-8.00) x10^3/uL Lymph # (Auto) (0.60-5.00) 10^3/uL [place] # (Auto) (0.00-1.50) 10^3/uL Eos # (Auto) (0.00-1.50) 10^3/uL Baso # (Auto) (0.00-0.50) 10^3/uL Immature Gran # (Auto) (0.00-0.49) 10^3/uL PT 13.0 H (9.7-12.3) SEC INR 1.20 H (0.92-1.18) D-Dimer, Quantitative (0.00-0.50) Sodium 147 H (136-145) mEq/L Potassium 4.5 (3.5-5.0) mEq/L Chloride 110 H (98-106) mEq/L Carbon Dioxide 34 H (21-32) mmol/L BUN 27 H (7-18) mg/dL Creatinine 1.2 H (0.6-1.0) mg/dL Est Cr Clr Drug Dosing 61.12 mL/min Estimated GFR (MDRD) 52 L (>=60) mL/min Glucose 103 H D (75-99) mg/dL Lactic Acid (0.4-2.0) mmol/L Calcium 7.8 L (8.4-10.1) mg/dL Total Bilirubin 0.6 (0.0-1.0) mg/dL Direct Bilirubin 0.2 (0.0-0.3) mg/dL Indirect Bilirubin 0.4 mg/dL AST 679 H* (15-37) U/L ALT 1163 H* (12-78) U/L Alkaline Phosphatase 77 (46-116) U/L Troponin I High Sens 132.8 H* (<=51) pg/mL C-Reactive Protein (0.2-0.8) mg/dL Total Protein 6.4 (6.4-8.2) g/dL Albumin 3.1 L (3.4-5.0) g/dL Globulin 3.3 H (2.7-3.2) g/dL Albumin/Globulin Ratio 0.9 (0.9-1.8) Urine Color (YELLOW) Urine Appearance (CLEAR) Urine pH (4.5-8.0) Ur Specific [place] (1.003-1.020) Urine Protein (NEGATIVE) mg/dL Urine Glucose (UA) (NEGATIVE) mg/dL Urine Ketones (NEGATIVE) mg/dL Urine Occult Blood (NEGATIVE) Urine Nitrite (NEGATIVE) Urine Bilirubin (NEGATIVE) Urine Urobilinogen (0.2-1.0) EU/dL Ur Leukocyte Esterase (NEGATIVE) Urine RBC (0-5) /HPF Urine WBC (0-5) /HPF Ur Epithelial Cells (NOT SEEN) /HPF Urine HCG, Qual Urine Opiates Screen (NEGATIVE) Ur Oxycodone Screen (NEGATIVE) Urine Methadone Screen (NEGATIVE) Ur Barbiturates Screen (NEGATIVE) U Tricyclic Antidepress (NEGATIVE) Ur Phencyclidine Scrn (NEGATIVE) Ur Amphetamine Screen (NEGATIVE) U Methamphetamines Scrn (NEGATIVE) Urine MDMA Screen (NEGATIVE) U Benzodiazepines Scrn (NEGATIVE) Urine Cocaine Screen (NEGATIVE) U Marijuana (THC) Screen (NEGATIVE) Ethyl Alcohol (0-3) mg/dL SARS CoV-2 RNA Rapid DEBORA (NEGATIVE) Med Orders - Current: Current Medications Buspirone HCl (Buspirone 5 Mg Tab) 15 mg PO BID [facility] Last Admin: 11/05/21 07:29 Dose: 15 mg Documented by: Ceftriaxone Sodium (Ceftriaxone 1 Gm Vial) 1 gm IVPUSH Q24H ANDREAS Enoxaparin Sodium (Enoxaparin 40 Mg/0.4 Ml Syringe) 40 mg SUBCUT Q24H ANDREAS Sodium Chloride (Normal Saline) 1,000 mls @ 100 mls/hr IV ASDIRECTED [facility] Last Admin: 11/05/21 03:03 Dose: 100 mls/hr Documented by: Azithromycin 500 mg/ Sodium (Chloride) 250 mls @ 250 mls/hr IV Q24H ANDREAS Lactated Ringer's (Ringers, Lactated) 1,000 mls @ 999 mls/hr IV ASDIRECTED ONE Stop: 11/05/21 11:15 Lactated Ringer's (Ringers, Lactated) 1,000 mls @ 100 mls/hr IV ASDIRECTED [facility]RE[facility] Paroxetine HCl (Paroxetine 20 Mg Tab) 20 mg PO DAILY [facility] Last Admin: 11/05/21 07:29 Dose: 20 mg Documented by: Promethazine HCl/Codeine (Codeine/Promethazine 10-6.25 Mg/5 Ml Syrup 5 Ml Ud Cup) 10 ml PO Q6H PRN PRN Reason: Cough Sodium Chloride (Sodium Chloride 0.9% 10 Ml Syringe) 10 ml FLUSH ASDIRECTED PRN PRN Reason: Keep Vein Open Trazodone HCl (Trazodone 50 Mg Tab) 50 mg PO BEDTIME PRN PRN Reason: Sleep Trazodone HCl (Trazodone 50 Mg Tab) 100 mg PO BEDTIME PRN PRN Reason: Sleep Discontinued Medications Azithromycin (Azithromycin 500 Mg Vial) Confirm Administered Dose 500 mg .ROUTE .STK-MED ONE Stop: 11/05/21 00:18 Last Admin: 11/05/21 00:59 Dose: Not Given Documented by: Ceftriaxone Sodium (Ceftriaxone 1 Gm Vial) 1 gm IVPUSH ONETIME ONE Stop: 11/04/21 23:23 Last Admin: 11/05/21 00:00 Dose: 1 gm Documented by: Sodium Chloride (Normal Saline) Confirm Administered Dose 1,000 mls @ as directed .ROUTE .STK-MED ONE Stop: 11/04/21 22:36 Last Admin: 11/04/21 23:03 Dose: Not Given Documented by: Sodium Chloride (Normal Saline) 1,000 mls @ 999 mls/hr IV ASDIRECTED [facility] Last Admin: 11/04/21 23:00 Dose: 999 mls/hr Documented by: Sodium Chloride (Normal Saline) 1,000 mls @ 999 mls/hr IV .BOLUS ONE Stop: 11/04/21 23:47 Last Admin: 11/05/21 01:02 Dose: Not Given Documented by: Azithromycin 500 mg/ Sodium (Chloride) 250 mls @ 250 mls/hr IV Q24H [facility] Last Admin: 11/05/21 00:01 Dose: 250 mls/hr Documented by: Iopamidol (Iopamidol 755 Mg/Ml 100 Ml Bottle) 100 ml IVPUSH ONETIME ONE Stop: 11/04/21 22:08 Last Admin: 11/04/21 22:48 Dose: 100 ml Documented by: - Exam Quality Assessment: Supplemental Oxygen, DVT Prophylaxis General: Alert, Oriented, Cooperative, No Acute Distress Neck: Supple, Trachea Midline, No JVD Lungs: Decreased Breath Sounds (right side), Crackles (Right upper and middle l obes) Cardiovascular: Regular Rate, Regular Rhythm, No Murmurs GI/Abdominal Exam: Normal Bowel Sounds, Soft, Non-Tender, No Organomegaly, No Distention, No Mass (Female) Exam: Deferred Back Exam: Normal Inspection, Full Range of Motion. No: CVA Tenderness (L), CVA Tenderness (R) Extremities: Normal Inspection, Normal Range of Motion, Non-Tender, No Pedal Edema Skin: Warm, Dry, Intact Neurological: No New Focal Deficit Psy/Mental Status: Alert, Normal Affect, Normal Mood - Patient Data Lab Results Last 24 hrs: Laboratory Results - last 24 hr 11/04/21 11/04/21 11/04/21 Range/Units 21:25 21:25 21:25 WBC 14.4 H (4.0-11.0) 10^3/uL RBC 4.69 (4.00-5.50) x10^6/uL Hgb 13.4 (12.0-16.0) g/dL Hct 41.2 (37.0-47.0) % MCV 87.8 (83.0-97.0) fL MCH 28.6 (27.0-32.0) pg MCHC 32.5 (32.0-36.0) g/dL RDW Coeff of Amanuel 12.9 (11.0-15.0) % Plt Count 312 (150-400) 10^3/uL Immature Gran % (Auto) 1.0 (0.0-4.9) % Neut % (Auto) 79.8 H (41-71) % Lymph % (Auto) 11.8 L (24-44) % [place] % (Auto) 7.2 (0-10) % Eos % (Auto) 0.1 (0-6) % Baso % (Auto) 0.1 (0-1) % Neut # (Auto) 11.49 H (1.80-8.00) x10^3/uL Lymph # (Auto) 1.70 (0.60-5.00) 10^3/uL [place] # (Auto) 1.03 (0.00-1.50) 10^3/uL Eos # (Auto) 0.02 (0.00-1.50) 10^3/uL Baso # (Auto) 0.02 (0.00-0.50) 10^3/uL Immature Gran # (Auto) 0.14 (0.00-0.49) 10^3/uL PT (9.7-12.3) SEC INR (0.92-1.18) D-Dimer, Quantitative 4.21 H (0.00-0.50) Sodium (136-145) mEq/L Potassium (3.5-5.0) mEq/L Chloride (98-106) mEq/L Carbon Dioxide (21-32) mmol/L BUN (7-18) mg/dL Creatinine (0.6-1.0) mg/dL Est Cr Clr Drug Dosing mL/min Estimated GFR (MDRD) (>=60) mL/min Glucose (75-99) mg/dL Lactic Acid (0.4-2.0) mmol/L Calcium (8.4-10.1) mg/dL Total Bilirubin (0.0-1.0) mg/dL Direct Bilirubin (0.0-0.3) mg/dL Indirect Bilirubin mg/dL AST (15-37) U/L ALT (12-78) U/L Alkaline Phosphatase (46-116) U/L Troponin I High Sens (<=51) pg/mL C-Reactive Protein (0.2-0.8) mg/dL Total Protein (6.4-8.2) g/dL Albumin (3.4-5.0) g/dL Globulin (2.7-3.2) g/dL Albumin/Globulin Ratio (0.9-1.8) Urine Color (YELLOW) Urine Appearance (CLEAR) Urine pH (4.5-8.0) Ur Specific [place] (1.003-1.020) Urine Protein (NEGATIVE) mg/dL Urine Glucose (UA) (NEGATIVE) mg/dL Urine Ketones (NEGATIVE) mg/dL Urine Occult Blood (NEGATIVE) Urine Nitrite (NEGATIVE) Urine Bilirubin (NEGATIVE) Urine Urobilinogen (0.2-1.0) EU/dL Ur Leukocyte Esterase (NEGATIVE) Urine RBC (0-5) /HPF Urine WBC (0-5) /HPF Ur Epithelial Cells (NOT SEEN) /HPF Urine HCG, Qual Urine Opiates Screen (NEGATIVE) Ur Oxycodone Screen (NEGATIVE) Urine Methadone Screen (NEGATIVE) Ur Barbiturates Screen (NEGATIVE) U Tricyclic Antidepress (NEGATIVE) Ur Phencyclidine Scrn (NEGATIVE) Ur Amphetamine Screen (NEGATIVE) U Methamphetamines Scrn (NEGATIVE) Urine MDMA Screen (NEGATIVE) U Benzodiazepines Scrn (NEGATIVE) Urine Cocaine Screen (NEGATIVE) U Marijuana (THC) Screen (NEGATIVE) Ethyl Alcohol (0-3) mg/dL SARS CoV-2 RNA Rapid DEBORA Negative (NEGATIVE) 11/04/21 11/04/21 11/04/21 Range/Units 21:25 22:30 22:30 WBC (4.0-11.0) 10^3/uL RBC (4.00-5.50) x10^6/uL Hgb (12.0-16.0) g/dL Hct (37.0-47.0) % MCV (83.0-97.0) fL MCH (27.0-32.0) pg MCHC (32.0-36.0) g/dL RDW Coeff of Amanuel (11.0-15.0) % Plt Count (150-400) 10^3/uL Immature Gran % (Auto) (0.0-4.9) % Neut % (Auto) (41-71) % Lymph % (Auto) (24-44) % [place] % (Auto) (0-10) % Eos % (Auto) (0-6) % Baso % (Auto) (0-1) % Neut # (Auto) (1.80-8.00) x10^3/uL Lymph # (Auto) (0.60-5.00) 10^3/uL [place] # (Auto) (0.00-1.50) 10^3/uL Eos # (Auto) (0.00-1.50) 10^3/uL Baso # (Auto) (0.00-0.50) 10^3/uL Immature Gran # (Auto) (0.00-0.49) 10^3/uL PT (9.7-12.3) SEC INR (0.92-1.18) D-Dimer, Quantitative (0.00-0.50) Sodium 137 (136-145) mEq/L Potassium 4.3 (3.5-5.0) mEq/L Chloride 104 (98-106) mEq/L Carbon Dioxide 32 (21-32) mmol/L BUN 41 H D (7-18) mg/dL Creatinine 1.6 H D (0.6-1.0) mg/dL Est Cr Clr Drug Dosing 45.84 mL/min Estimated GFR (MDRD) 38 L (>=60) mL/min Glucose 159 H D (75-99) mg/dL Lactic Acid (0.4-2.0) mmol/L Calcium 8.1 L (8.4-10.1) mg/dL Total Bilirubin 0.9 (0.0-1.0) mg/dL Direct Bilirubin (0.0-0.3) mg/dL Indirect Bilirubin mg/dL AST 1090 H* (15-37) U/L ALT 1431 H* (12-78) U/L Alkaline Phosphatase 85 (46-116) U/L Troponin I High Sens 141.1 H* (<=51) pg/mL C-Reactive Protein 16.0 H (0.2-0.8) mg/dL Total Protein 7.0 (6.4-8.2) g/dL Albumin 3.5 (3.4-5.0) g/dL Globulin (2.7-3.2) g/dL Albumin/Globulin Ratio (0.9-1.8) Urine Color Yellow (YELLOW) Urine Appearance Clear (CLEAR) Urine pH 6.0 (4.5-8.0) Ur Specific [place] 1.025 H (1.003-1.020) Urine Protein 100 H (NEGATIVE) mg/dL Urine Glucose (UA) Negative (NEGATIVE) mg/dL Urine Ketones Negative (NEGATIVE) mg/dL Urine Occult Blood Large H (NEGATIVE) Urine Nitrite Negative (NEGATIVE) Urine Bilirubin Negative (NEGATIVE) Urine Urobilinogen 0.2 (0.2-1.0) EU/dL Ur Leukocyte Esterase Trace H (NEGATIVE) Urine RBC 5-10 H (0-5) /HPF Urine WBC Not seen (0-5) /HPF Ur Epithelial Cells Moderate H (NOT SEEN) /HPF Urine HCG, Qual Negative Urine Opiates Screen (NEGATIVE) Ur Oxycodone Screen (NEGATIVE) Urine Methadone Screen (NEGATIVE) Ur Barbiturates Screen (NEGATIVE) U Tricyclic Antidepress (NEGATIVE) Ur Phencyclidine Scrn (NEGATIVE) Ur Amphetamine Screen (NEGATIVE) U Methamphetamines Scrn (NEGATIVE) Urine MDMA Screen (NEGATIVE) U Benzodiazepines Scrn (NEGATIVE) Urine Cocaine Screen (NEGATIVE) U Marijuana (THC) Screen (NEGATIVE) Ethyl Alcohol (0-3) mg/dL SARS CoV-2 RNA Rapid DEBORA (NEGATIVE) 11/04/21 11/04/21 11/04/21 Range/Units 23:35 23:37 23:37 WBC (4.0-11.0) 10^3/uL RBC (4.00-5.50) x10^6/uL Hgb (12.0-16.0) g/dL Hct (37.0-47.0) % MCV (83.0-97.0) fL MCH (27.0-32.0) pg MCHC (32.0-36.0) g/dL RDW Coeff of Amanuel (11.0-15.0) % Plt Count (150-400) 10^3/uL Immature Gran % (Auto) (0.0-4.9) % Neut % (Auto) (41-71) % Lymph % (Auto) (24-44) % [place] % (Auto) (0-10) % Eos % (Auto) (0-6) % Baso % (Auto) (0-1) % Neut # (Auto) (1.80-8.00) x10^3/uL Lymph # (Auto) (0.60-5.00) 10^3/uL [place] # (Auto) (0.00-1.50) 10^3/uL Eos # (Auto) (0.00-1.50) 10^3/uL Baso # (Auto) (0.00-0.50) 10^3/uL Immature Gran # (Auto) (0.00-0.49) 10^3/uL PT (9.7-12.3) SEC INR (0.92-1.18) D-Dimer, Quantitative (0.00-0.50) Sodium (136-145) mEq/L Potassium (3.5-5.0) mEq/L Chloride (98-106) mEq/L Carbon Dioxide (21-32) mmol/L BUN (7-18) mg/dL Creatinine (0.6-1.0) mg/dL Est Cr Clr Drug Dosing mL/min Estimated GFR (MDRD) (>=60) mL/min Glucose (75-99) mg/dL Lactic Acid 1.6 (0.4-2.0) mmol/L Calcium (8.4-10.1) mg/dL Total Bilirubin (0.0-1.0) mg/dL Direct Bilirubin (0.0-0.3) mg/dL Indirect Bilirubin mg/dL AST (15-37) U/L ALT (12-78) U/L Alkaline Phosphatase (46-116) U/L Troponin I High Sens (<=51) pg/mL C-Reactive Protein (0.2-0.8) mg/dL Total Protein (6.4-8.2) g/dL Albumin (3.4-5.0) g/dL Globulin (2.7-3.2) g/dL Albumin/Globulin Ratio (0.9-1.8) Urine Color (YELLOW) Urine Appearance (CLEAR) Urine pH (4.5-8.0) Ur Specific [place] (1.003-1.020) Urine Protein (NEGATIVE) mg/dL Urine Glucose (UA) (NEGATIVE) mg/dL Urine Ketones (NEGATIVE) mg/dL Urine Occult Blood (NEGATIVE) Urine Nitrite (NEGATIVE) Urine Bilirubin (NEGATIVE) Urine Urobilinogen (0.2-1.0) EU/dL Ur Leukocyte Esterase (NEGATIVE) Urine RBC (0-5) /HPF Urine WBC (0-5) /HPF Ur Epithelial Cells (NOT SEEN) /HPF Urine HCG, Qual Urine Opiates Screen Negative (NEGATIVE) Ur Oxycodone Screen Negative (NEGATIVE) Urine Methadone Screen Negative (NEGATIVE) Ur Barbiturates Screen Negative (NEGATIVE) U Tricyclic Antidepress Negative (NEGATIVE) Ur Phencyclidine Scrn Negative (NEGATIVE) Ur Amphetamine Screen Negative (NEGATIVE) U Methamphetamines Scrn Negative (NEGATIVE) Urine MDMA Screen Negative (NEGATIVE) U Benzodiazepines Scrn Negative (NEGATIVE) Urine Cocaine Screen Negative (NEGATIVE) U Marijuana (THC) Screen Negative (NEGATIVE) Ethyl Alcohol < 3 (0-3) mg/dL SARS CoV-2 RNA Rapid DEBORA (NEGATIVE) 11/05/21 11/05/21 11/05/21 Range/Units 00:30 00:30 06:45 WBC 11.6 H (4.0-11.0) 10^3/uL RBC 4.41 (4.00-5.50) x10^6/uL Hgb 12.6 (12.0-16.0) g/dL Hct 38.8 (37.0-47.0) % MCV 88.0 (83.0-97.0) fL MCH 28.6 (27.0-32.0) pg MCHC 32.5 (32.0-36.0) g/dL RDW Coeff of Amanuel 13.0 (11.0-15.0) % Plt Count 295 (150-400) 10^3/uL Immature Gran % (Auto) 1.3 (0.0-4.9) % Neut % (Auto) 76.4 H (41-71) % Lymph % (Auto) 14.5 L (24-44) % Freestone % (Auto) 7.3 (0-10) % Eos % (Auto) 0.3 (0-6) % Baso % (Auto) 0.2 (0-1) % Neut # (Auto) 8.83 H (1.80-8.00) x10^3/uL Lymph # (Auto) 1.68 (0.60-5.00) 10^3/uL Fre[place] # (Auto) 0.84 (0.00-1.50) 10^3/uL Eos # (Auto) 0.03 (0.00-1.50) 10^3/uL Baso # (Auto) 0.02 (0.00-0.50) 10^3/uL Immature Gran # (Auto) 0.15 (0.00-0.49) 10^3/uL PT 13.2 H (9.7-12.3) SEC INR 1.23 H (0.92-1.18) D-Dimer, Quantitative (0.00-0.50) Sodium (136-145) mEq/L Potassium (3.5-5.0) mEq/L Chloride (98-106) mEq/L Carbon Dioxide (21-32) mmol/L BUN (7-18) mg/dL Creatinine (0.6-1.0) mg/dL Est Cr Clr Drug Dosing mL/min Estimated GFR (MDRD) (>=60) mL/min Glucose (75-99) mg/dL Lactic Acid (0.4-2.0) mmol/L Calcium (8.4-10.1) mg/dL Total Bilirubin (0.0-1.0) mg/dL Direct Bilirubin (0.0-0.3) mg/dL Indirect Bilirubin mg/dL AST (15-37) U/L ALT (12-78) U/L Alkaline Phosphatase (46-116) U/L Troponin I High Sens 164.3 H* (<=51) pg/mL C-Reactive Protein (0.2-0.8) mg/dL Total Protein (6.4-8.2) g/dL Albumin (3.4-5.0) g/dL Globulin (2.7-3.2) g/dL Albumin/Globulin Ratio (0.9-1.8) Urine Color (YELLOW) Urine Appearance (CLEAR) Urine pH (4.5-8.0) Ur Specific [place] (1.003-1.020) Urine Protein (NEGATIVE) mg/dL Urine Glucose (UA) (NEGATIVE) mg/dL Urine Ketones (NEGATIVE) mg/dL Urine Occult Blood (NEGATIVE) Urine Nitrite (NEGATIVE) Urine Bilirubin (NEGATIVE) Urine Urobilinogen (0.2-1.0) EU/dL Ur Leukocyte Esterase (NEGATIVE) Urine RBC (0-5) /HPF Urine WBC (0-5) /HPF Ur Epithelial Cells (NOT SEEN) /HPF Urine HCG, Qual Urine Opiates Screen (NEGATIVE) Ur Oxycodone Screen (NEGATIVE) Urine Methadone Screen (NEGATIVE) Ur Barbiturates Screen (NEGATIVE) U Tricyclic Antidepress (NEGATIVE) Ur Phencyclidine Scrn (NEGATIVE) Ur Amphetamine Screen (NEGATIVE) U Methamphetamines Scrn (NEGATIVE) Urine MDMA Screen (NEGATIVE) U Benzodiazepines Scrn (NEGATIVE) Urine Cocaine Screen (NEGATIVE) U Marijuana (THC) Screen (NEGATIVE) Ethyl Alcohol (0-3) mg/dL SARS CoV-2 RNA Rapid DEBORA (NEGATIVE) 11/05/21 11/05/21 Range/Units 06:45 06:45 WBC (4.0-11.0) 10^3/uL RBC (4.00-5.50) x10^6/uL Hgb (12.0-16.0) g/dL Hct (37.0-47.0) % MCV (83.0-97.0) fL MCH (27.0-32.0) pg MCHC (32.0-36.0) g/dL RDW Coeff of Amanuel (11.0-15.0) % Plt Count (150-400) 10^3/uL Immature Gran % (Auto) (0.0-4.9) % Neut % (Auto) (41-71) % Lymph % (Auto) (24-44) % [place] % (Auto) (0-10) % Eos % (Auto) (0-6) % Baso % (Auto) (0-1) % Neut # (Auto) (1.80-8.00) x10^3/uL Lymph # (Auto) (0.60-5.00) 10^3/uL [place] # (Auto) (0.00-1.50) 10^3/uL Eos # (Auto) (0.00-1.50) 10^3/uL Baso # (Auto) (0.00-0.50) 10^3/uL Immature Gran # (Auto) (0.00-0.49) 10^3/uL PT 13.0 H (9.7-12.3) SEC INR 1.20 H (0.92-1.18) D-Dimer, Quantitative (0.00-0.50) Sodium 147 H (136-145) mEq/L Potassium 4.5 (3.5-5.0) mEq/L Chloride 110 H (98-106) mEq/L Carbon Dioxide 34 H (21-32) mmol/L BUN 27 H (7-18) mg/dL Creatinine 1.2 H (0.6-1.0) mg/dL Est Cr Clr Drug Dosing 61.12 mL/min Estimated GFR (MDRD) 52 L (>=60) mL/min Glucose 103 H D (75-99) mg/dL Lactic Acid (0.4-2.0) mmol/L Calcium 7.8 L (8.4-10.1) mg/dL Total Bilirubin 0.6 (0.0-1.0) mg/dL Direct Bilirubin 0.2 (0.0-0.3) mg/dL Indirect Bilirubin 0.4 mg/dL AST 679 H* (15-37) U/L ALT 1163 H* (12-78) U/L Alkaline Phosphatase 77 (46-116) U/L Troponin I High Sens 132.8 H* (<=51) pg/mL C-Reactive Protein (0.2-0.8) mg/dL Total Protein 6.4 (6.4-8.2) g/dL Albumin 3.1 L (3.4-5.0) g/dL Globulin 3.3 H (2.7-3.2) g/dL Albumin/Globulin Ratio 0.9 (0.9-1.8) Urine Color (YELLOW) Urine Appearance (CLEAR) Urine pH (4.5-8.0) Ur Specific [place] (1.003-1.020) Urine Protein (NEGATIVE) mg/dL Urine Glucose (UA) (NEGATIVE) mg/dL Urine Ketones (NEGATIVE) mg/dL Urine Occult Blood (NEGATIVE) Urine Nitrite (NEGATIVE) Urine Bilirubin (NEGATIVE) Urine Urobilinogen (0.2-1.0) EU/dL Ur Leukocyte Esterase (NEGATIVE) Urine RBC (0-5) /HPF Urine WBC (0-5) /HPF Ur Epithelial Cells (NOT SEEN) /HPF Urine HCG, Qual Urine Opiates Screen (NEGATIVE) Ur Oxycodone Screen (NEGATIVE) Urine Methadone Screen (NEGATIVE) Ur Barbiturates Screen (NEGATIVE) U Tricyclic Antidepress (NEGATIVE) Ur Phencyclidine Scrn (NEGATIVE) Ur Amphetamine Screen (NEGATIVE) U Methamphetamines Scrn (NEGATIVE) Urine MDMA Screen (NEGATIVE) U Benzodiazepines Scrn (NEGATIVE) Urine Cocaine Screen (NEGATIVE) U Marijuana (THC) Screen (NEGATIVE) Ethyl Alcohol (0-3) mg/dL SARS CoV-2 RNA Rapid DEBOR[place] (NEGATIVE) Result Diagrams: 11/05/21 06:45 11/05/21 06:45 Sepsis Event Note - Evaluation Sepsis Screening Result: No Definite Risk - Focused Exam Vital Signs: Vital Signs Temp Pulse Pulse Resp BP Pulse Ox 11/05/21 08:00 97.4 F 95 16 103/63 95 11/05/21 04:00 97 F 104 H 18 104/72 94 L 11/05/21 00:47 98 F 99 18 111/69 90 L 11/04/21 23:12 97.2 F 97 11 L 105/72 92 L - Problem List & Annotations (1) Elevated liver enzymes SNOMED Code(s): 731090659 Code(s): R74.8 - ABNORMAL LEVELS OF OTHER SERUM ENZYMES Status: Acute Priority: High Current Visit: Yes (2) Right upper lobe pneumonia SNOMED Code(s): 865085607 Code(s): J18.9 - PNEUMONIA, UNSPECIFIED ORGANISM Status: Acute Priority: High Current Visit: Yes Qualifiers: Pneumonia type: due to unspecified organism Qualified Code(s): J18.9 - Pneumonia, unspecified organism (3) Elevated troponin SNOMED Code(s): 678249768, 833413702, 405803422 Code(s): R77.8 - OTHER SPECIFIED ABNORMALITIES OF PLASMA PROTEINS Status: Acute Priority: High Current Visit: Yes (4) Elevated white blood cell count SNOMED Code(s): 312359194, 818601063 Code(s): D72.829 - ELEVATED WHITE BLOOD CELL COUNT, UNSPECIFIED Status: Acute Priority: High Current Visit: Yes Qualifiers: Leukocytosis type: unspecified Qualified Code(s): D72.829 - Elevated white blood cell count, unspecified - Problem List Review Problem List Initiated/Reviewed/Updated: Yes - My Orders Last 24 Hours: My Active Orders 11/04/21 21:15 Oxygen Therapy Adult [Oxygen Therapy] [RC] 4895 Sodium Chloride 0.9% [Saline Flush] 10 ml FLUSH ASDIRECTED PRN 11/04/21 23:35 CULTURE BLOOD [BC] Stat 11/04/21 23:37 CULTURE BLOOD [BC] Stat 11/05/21 00:46 Resuscitation Status Routine 11/05/21 00:58 traZODone 50 mg PO BEDTIME PRN 11/05/21 01:13 traZODone 100 mg PO BEDTIME PRN 11/05/21 01:25 Codeine/Promethazine [Phenergan with Codeine] 10 ml PO Q6H PRN Sodium Chloride 0.9% [Normal Saline] 1,000 ml IV ASDIRECTED 11/05/21 01:25 Patient Status [ADT] Routine Cardiac Monitoring [RC] 0800,1999 Vital Signs [RC] 0000,0400,0800,1200,1600,2000 11/05/21 Breakfast Regular Diet [DIET] PARoxetine [Paxil] 20 mg PO DAILY busPIRone [Buspar] 15 mg PO BID 11/05/21 10:11 CREATINE KINASE,CK [CHEM] Routine 11/05/21 10:15 Lactated Ringers [Ringers, Lactated] 1,000 ml IV ASDIRECTED 11/05/21 11:15 Lactated Ringers @ 100 MLS/HR(1,000ml) Lactated Ringers [Ringers, Lactated] 1,000 ml IV ASDIRECTED 11/05/21 20:00 Azithromycin [Zithromax] 500 mg Sodium Chloride 0.9% [Normal Saline AdvBag] 250 ml IV Q24H Enoxaparin [Lovenox] 40 mg SUBCUT Q24H cefTRIAXone [Rocephin] 1 gm IVPUSH Q24H 11/06/21 07:00 BMP [BASIC METABOLIC PANEL,BMP] [CHEM] DAILY CBC WITH AUTO DIFF [HEME] DAILY HEPATIC FUNCTION PANEL,HFP [CHEM] DAILY INR,PT,PROTHROMBIN TIME [COAG] DAILY 11/07/21 07:00 BMP [BASIC METABOLIC PANEL,BMP] [CHEM] DAILY CBC WITH AUTO DIFF [HEME] DAILY HEPATIC FUNCTION PANEL,HFP [CHEM] DAILY INR,PT,PROTHROMBIN TIME [COAG] DAILY - Plan Plan:: This is 30 year old female admitted with RUL pneumonia, elevated liver enzymes, elevated troponin, and elevated WBC. WBC has decreased from 14.4 to 11.6. AST 1090 to 679, ALT 1431 to 1163, INR 1.23 to 1.2, Troponin 141 to 164.3 to 132.8. Rocephin 1 gram and Azithromycin for pneumonia. Remains on 3 LPM oxygen via NC. See subjective and objective data. Upon reviewing laboratory results and physically assessing patient; consulted with Dr. De Los Santos, business support administrator, at [facility]. Reviewed lab findings and patient response to current treatment. Per his recommendation added a CK level which was 1108. He believes the elevated liver enzymes are related to a mild ischemic hepatic event and should respond well to hydration and antibiotics as prescribed. As per discussion we will change IV fluids from normal saline to LR and administer a 1 L bolus followed by maintenance LR infusion at 100 ml/hr. Will repeat CBC, BMP, INR, hepatic panel, and troponin levels daily to trend results. He does not feel the patient needs to be transferred and can be managed locally. Dr. De Los Santos stated that he would be available this weekend for further questions or concerns. Discussed current treatment recommendations and plan with the patient and her emergency contact, Joann Gar -mother. They are agreeable with current paradise mmendations and plan.
[2021-11-05] MEDS: Lactated Ringers 1,000 ML IV SCH ×2 (12:50→23:57)
[2021-11-05] MEDS: cefTRIAXone 1 GM Vial IVPUSH SCH (19:43)
[2021-11-05] MEDS: Azithromycin 500 MG in Sodium Chloride 0.9% 250 ML IV SCH (19:43)
[2021-11-05] MEDS: Enoxaparin 40 MG/0.4 ML Syringe SUBCUT SCH (19:44)
[2021-11-06] MEDS: PARoxetine 20 MG Tab PO SCH (07:34)
[2021-11-06] MEDS: busPIRone 5 MG Tab PO SCH ×2 (07:34→19:10)
--- NOTE | 2021-11-06 09:35 | PCM.PN ---
- General Info Date of Service: 11/06/21 Admission Dx/Problem (Free Text): 1. Right upper lobe pneumonia 2. Elevated liver enzymes 3. Elevated troponin 4. Elevated WBC Subjective Update: Patient states that she feels like she is almost back to her baseline and feeling much better. Denies SOB this morning and has had no return of chest pain. Continues to feel tired at times. Denies any nausea, vomiting, or abdominal pain. The oxygen was removed this morning and she has been maintaining her oxygen sats above 92%. Nursing reports that she is tachycardic at times as much as 120 but also comes down to the 70's. Functional Status: Reports: Pain Controlled, Tolerating Diet, Ambulating, Urinating - Review of Systems General: Reports: Fatigue. Denies: Fever, Chills HEENT: Denies: Sinus Congestion, Sore Throat Pulmonary: Denies: Shortness of Breath, Cough Cardiovascular: Denies: Chest Pain, Palpitations, Dyspnea on Exertion Gastrointestinal: Denies: Abdominal Pain, Nausea, Vomiting Genitourinary: Denies: Dysuria, Frequency, Burning, Urgency, Incontinence Musculoskeletal: Reports: No Symptoms Skin: Denies: Diaphoresis, Rash Neurological: Denies: Confusion, Dizziness, Headache, Trouble Speaking Psychiatric: Reports: No Symptoms - Patient Data Vitals - Most Recent: Last Vital Signs Temp 99.0 F 11/06/21 08:00 Pulse 86 11/06/21 08:00 Resp 16 11/06/21 08:00 BP 127/71 11/06/21 08:00 Pulse Ox 93 L 11/06/21 08:32 Weight - Most Recent: 256 lb 1.6 oz I&O - Last 24 Hours: Intake & Output 11/05/21 11/06/21 11/06/21 22:59 06:59 14:59 Intake Total 1000 Balance 1000 Lab Results Last 24 Hours: Laboratory Results - last 24 hr 11/05/21 11/06/21 11/06/21 Range/Units 07:00 06:55 06:55 WBC 8.7 (4.0-11.0) 10^3/uL RBC 4.20 (4.00-5.50) x10^6/uL Hgb 11.9 L (12.0-16.0) g/dL Hct 36.8 L (37.0-47.0) % MCV 87.6 (83.0-97.0) fL MCH 28.3 (27.0-32.0) pg MCHC 32.3 (32.0-36.0) g/dL RDW Coeff of Amanuel 13.0 (11.0-15.0) % Plt Count 266 (150-400) 10^3/uL Immature Gran % (Auto) 1.8 (0.0-4.9) % Neut % (Auto) 63.5 (41-71) % Lymph % (Auto) 22.1 L (24-44) % [place] % (Auto) 10.3 H (0-10) % Eos % (Auto) 2.0 (0-6) % Baso % (Auto) 0.3 (0-1) % Neut # (Auto) 5.51 (1.80-8.00) x10^3/uL Lymph # (Auto) 1.92 (0.60-5.00) 10^3/uL [place] # (Auto) 0.89 (0.00-1.50) 10^3/uL Eos # (Auto) 0.17 (0.00-1.50) 10^3/uL Baso # (Auto) 0.03 (0.00-0.50) 10^3/uL Immature Gran # (Auto) 0.16 (0.00-0.49) 10^3/uL PT 12.5 H (9.7-12.3) SEC INR 1.16 (0.92-1.18) Sodium (136-145) mEq/L Potassium (3.5-5.0) mEq/L Chloride (98-106) mEq/L Carbon Dioxide (21-32) mmol/L BUN (7-18) mg/dL Creatinine (0.6-1.0) mg/dL Est Cr Clr Drug Dosing mL/min Estimated GFR (MDRD) (>=60) mL/min Glucose (75-99) mg/dL Calcium (8.4-10.1) mg/dL Total Bilirubin (0.0-1.0) mg/dL Direct Bilirubin (0.0-0.3) mg/dL Indirect Bilirubin mg/dL AST (15-37) U/L ALT (12-78) U/L Alkaline Phosphatase (46-116) U/L Creatine Kinase 1108 H (21-215) U/L Troponin I High Sens (<=51) pg/mL Total Protein (6.4-8.2) g/dL Albumin (3.4-5.0) g/dL Globulin (2.7-3.2) g/dL Albumin/Globulin Ratio (0.9-1.8) 11/06/21 Range/Units 06:55 WBC (4.0-11.0) 10^3/uL RBC (4.00-5.50) x10^6/uL Hgb (12.0-16.0) g/dL Hct (37.0-47.0) % MCV (83.0-97.0) fL MCH (27.0-32.0) pg MCHC (32.0-36.0) g/dL RDW Coeff of Amanuel (11.0-15.0) % Plt Count (150-400) 10^3/uL Immature Gran % (Auto) (0.0-4.9) % Neut % (Auto) (41-71) % Lymph % (Auto) (24-44) % [place] % (Auto) (0-10) % Eos % (Auto) (0-6) % Baso % (Auto) (0-1) % Neut # (Auto) (1.80-8.00) x10^3/uL Lymph # (Auto) (0.60-5.00) 10^3/uL [place] # (Auto) (0.00-1.50) 10^3/uL Eos # (Auto) (0.00-1.50) 10^3/uL Baso # (Auto) (0.00-0.50) 10^3/uL Immature Gran # (Auto) (0.00-0.49) 10^3/uL PT (9.7-12.3) SEC INR (0.92-1.18) Sodium 153 H (136-145) mEq/L Potassium 4.0 (3.5-5.0) mEq/L Chloride 114 H (98-106) mEq/L Carbon Dioxide 33 H (21-32) mmol/L BUN 12 D (7-18) mg/dL Creatinine 1.1 H (0.6-1.0) mg/dL Est Cr Clr Drug Dosing 66.68 mL/min Estimated GFR (MDRD) 58 L (>=60) mL/min Glucose 87 (75-99) mg/dL Calcium 8.2 L (8.4-10.1) mg/dL Total Bilirubin 0.7 (0.0-1.0) mg/dL Direct Bilirubin 0.2 (0.0-0.3) mg/dL Indirect Bilirubin 0.5 mg/dL AST 432 H* (15-37) U/L ALT 928 H* (12-78) U/L Alkaline Phosphatase 75 (46-116) U/L Creatine Kinase 398 H (21-215) U/L Troponin I High Sens 91.2 H* (<=51) pg/mL Total Protein 6.0 L (6.4-8.2) g/dL Albumin 2.7 L (3.4-5.0) g/dL Globulin 3.3 H (2.7-3.2) g/dL Albumin/Globulin Ratio 0.8 L (0.9-1.8) Kwesi Results Last 24 Hours: Microbiology 11/04/21 23:37 Aerobic Blood Culture - Preliminary Blood - Venous NO GROWTH AFTER 1 DAY Anaerobic Blood Culture - Preliminary NO GROWTH AFTER 1 DAY 11/04/21 23:35 Aerobic Blood Culture - Preliminary Blood - Venous - Lab Draw NO GROWTH AFTER 1 DAY Anaerobic Blood Culture - Preliminary NO GROWTH AFTER 1 DAY Med Orders - Current: Current Medications Buspirone HCl (Buspirone 5 Mg Tab) 15 mg PO BID [facility] Last Admin: 11/06/21 07:34 Dose: 15 mg Documented by: Ceftriaxone Sodium (Ceftriaxone 1 Gm Vial) 1 gm IVPUSH Q24H [facility] Last Admin: 11/05/21 19:43 Dose: 1 gm Documented by: Enoxaparin Sodium (Enoxaparin 40 Mg/0.4 Ml Syringe) 40 mg SUBCUT Q24H [facility] Last Admin: 11/05/21 19:44 Dose: 40 mg Documented by: Azithromycin 500 mg/ Sodium (Chloride) 250 mls @ 250 mls/hr IV Q24H [facility] Last Admin: 11/05/21 19:43 Dose: 250 mls/hr Documented by: Lactated Ringer's (Ringers, Lactated) 1,000 mls @ 100 mls/hr IV ASDIRECTED [facility] Last Admin: 11/05/21 23:57 Dose: 100 mls/hr Documented by: Paroxetine HCl (Paroxetine 20 Mg Tab) 20 mg PO DAILY [facility] Last Admin: 11/06/21 07:34 Dose: 20 mg Documented by: Promethazine HCl/Codeine (Codeine/Promethazine 10-6.25 Mg/5 Ml Syrup 5 Ml Ud Cup) 10 ml PO Q6H PRN PRN Reason: Cough Last Admin: 11/05/21 21:15 Dose: 10 ml Documented by: Sodium Chloride (Sodium Chloride 0.9% 10 Ml Syringe) 10 ml FLUSH ASDIRECTED PRN PRN Reason: Keep Vein Open Trazodone HCl (Trazodone 50 Mg Tab) 50 mg PO BEDTIME PRN PRN Reason: Sleep Trazodone HCl (Trazodone 50 Mg Tab) 100 mg PO BEDTIME PRN PRN Reason: Sleep Discontinued Medications Azithromycin (Azithromycin 500 Mg Vial) Confirm Administered Dose 500 mg .ROUTE .STK-MED ONE Stop: 11/05/21 00:18 Last Admin: 11/05/21 00:59 Dose: Not Given Documented by: Ceftriaxone Sodium (Ceftriaxone 1 Gm Vial) 1 gm IVPUSH ONETIME ONE Stop: 11/04/21 23:23 Last Admin: 11/05/21 00:00 Dose: 1 gm Documented by: Sodium Chloride (Normal Saline) Confirm Administered Dose 1,000 mls @ as directed .ROUTE .STK-MED ONE Stop: 11/04/21 22:36 Last Admin: 11/04/21 23:03 Dose: Not Given Documented by: Sodium Chloride (Normal Saline) 1,000 mls @ 999 mls/hr IV ASDIRECTED ANDREAS Last Admin: 11/04/21 23:00 Dose: 999 mls/hr Documented by: Sodium Chloride (Normal Saline) 1,000 mls @ 999 mls/hr IV .BOLUS ONE Stop: 11/04/21 23:47 Last Admin: 11/05/21 01:02 Dose: Not Given Documented by: Azithromycin 500 mg/ Sodium (Chloride) 250 mls @ 250 mls/hr IV Q24H [facility] Last Admin: 11/05/21 00:01 Dose: 250 mls/hr Documented by: Sodium Chloride (Normal Saline) 1,000 mls @ 100 mls/hr IV ASDIRECTED [facility]REAS Last Admin: 11/05/21 03:03 Dose: 100 mls/hr Documented by: Lactated Ringer's (Ringers, Lactated) 1,000 mls @ 999 mls/hr IV ASDIRECTED ONE Stop: 11/05/21 11:15 Last Admin: 11/05/21 10:49 Dose: 999 mls/hr Documented by: Iopamidol (Iopamidol 755 Mg/Ml 100 Ml Bottle) 100 ml IVPUSH ONETIME ONE Stop: 11/04/21 22:08 Last Admin: 11/04/21 22:48 Dose: 100 ml Documented by: - Exam Quality Assessment: No: Supplemental Oxygen General: Alert, Oriented, Cooperative, No Acute Distress HEENT: Pupils Equal, Pupils Reactive Neck: Supple, Trachea Midline, No JVD Lungs: Normal Respiratory Effort, Decreased Breath Sounds (diminished with crackles to the right mid to upper lobes, improved from yesterday), Crackles Cardiovascular: Regular Rate, Regular Rhythm, Tachycardia. No: Murmurs, Gallops, Rubs GI/Abdominal Exam: Normal Bowel Sounds, Soft, Non-Tender, No Organomegaly, No Distention (Female) Exam: Deferred Back Exam: Normal Inspection Extremities: Normal Inspection, Normal Range of Motion, No Pedal Edema Skin: Warm, Dry, Intact Neurological: No New Focal Deficit Psy/Mental Status: Alert, Normal Affect, Normal Mood #2 Interpretation Rhythm: Other (Sinus Tachycardia) Rate (Beats/Min): 118 [place]: Normal P-Wave: Present QRS: Normal ST-T: Normal QT: Normal Comparison: Change From Previous EKG (Ischemia improvement) EKG Interpretation Comments: Sinus tachycardia with no acute ST changes - Patient Data Lab Results Last 24 hrs: Laboratory Results - last 24 hr 11/05/21 11/06/21 11/06/21 Range/Units 07:00 06:55 06:55 WBC 8.7 (4.0-11.0) 10^3/uL RBC 4.20 (4.00-5.50) x10^6/uL Hgb 11.9 L (12.0-16.0) g/dL Hct 36.8 L (37.0-47.0) % MCV 87.6 (83.0-97.0) fL MCH 28.3 (27.0-32.0) pg MCHC 32.3 (32.0-36.0) g/dL RDW Coeff of Amanuel 13.0 (11.0-15.0) % Plt Count 266 (150-400) 10^3/uL Immature Gran % (Auto) 1.8 (0.0-4.9) % Neut % (Auto) 63.5 (41-71) % Lymph % (Auto) 22.1 L (24-44) % [place] % (Auto) 10.3 H (0-10) % Eos % (Auto) 2.0 (0-6) % Baso % (Auto) 0.3 (0-1) % Neut # (Auto) 5.51 (1.80-8.00) x10^3/uL Lymph # (Auto) 1.92 (0.60-5.00) 10^3/uL [place] # (Auto) 0.89 (0.00-1.50) 10^3/uL Eos # (Auto) 0.17 (0.00-1.50) 10^3/uL Baso # (Auto) 0.03 (0.00-0.50) 10^3/uL Immature Gran # (Auto) 0.16 (0.00-0.49) 10^3/uL PT 12.5 H (9.7-12.3) SEC INR 1.16 (0.92-1.18) Sodium (136-145) mEq/L Potassium (3.5-5.0) mEq/L Chloride (98-106) mEq/L Carbon Dioxide (21-32) mmol/L BUN (7-18) mg/dL Creatinine (0.6-1.0) mg/dL Est Cr Clr Drug Dosing mL/min Estimated GFR (MDRD) (>=60) mL/min Glucose (75-99) mg/dL Calcium (8.4-10.1) mg/dL Total Bilirubin (0.0-1.0) mg/dL Direct Bilirubin (0.0-0.3) mg/dL Indirect Bilirubin mg/dL AST (15-37) U/L ALT (12-78) U/L Alkaline Phosphatase (46-116) U/L Creatine Kinase 1108 H (21-215) U/L Troponin I High Sens (<=51) pg/mL Total Protein (6.4-8.2) g/dL Albumin (3.4-5.0) g/dL Globulin (2.7-3.2) g/dL Albumin/Globulin Ratio (0.9-1.8) 11/06/21 Range/Units 06:55 WBC (4.0-11.0) 10^3/uL RBC (4.00-5.50) x10^6/uL Hgb (12.0-16.0) g/dL Hct (37.0-47.0) % MCV (83.0-97.0) fL MCH (27.0-32.0) pg MCHC (32.0-36.0) g/dL RDW Coeff of Amanuel (11.0-15.0) % Plt Count (150-400) 10^3/uL Immature Gran % (Auto) (0.0-4.9) % Neut % (Auto) (41-71) % Lymph % (Auto) (24-44) % [place] % (Auto) (0-10) % Eos % (Auto) (0-6) % Baso % (Auto) (0-1) % Neut # (Auto) (1.80-8.00) x10^3/uL Lymph # (Auto) (0.60-5.00) 10^3/uL [place] # (Auto) (0.00-1.50) 10^3/uL Eos # (Auto) (0.00-1.50) 10^3/uL Baso # (Auto) (0.00-0.50) 10^3/uL Immature Gran # (Auto) (0.00-0.49) 10^3/uL PT (9.7-12.3) SEC INR (0.92-1.18) Sodium 153 H (136-145) mEq/L Potassium 4.0 (3.5-5.0) mEq/L Chloride 114 H (98-106) mEq/L Carbon Dioxide 33 H (21-32) mmol/L BUN 12 D (7-18) mg/dL Creatinine 1.1 H (0.6-1.0) mg/dL Est Cr Clr Drug Dosing 66.68 mL/min Estimated GFR (MDRD) 58 L (>=60) mL/min Glucose 87 (75-99) mg/dL Calcium 8.2 L (8.4-10.1) mg/dL Total Bilirubin 0.7 (0.0-1.0) mg/dL Direct Bilirubin 0.2 (0.0-0.3) mg/dL Indirect Bilirubin 0.5 mg/dL AST 432 H* (15-37) U/L ALT 928 H* (12-78) U/L Alkaline Phosphatase 75 (46-116) U/L Creatine Kinase 398 H (21-215) U/L Troponin I High Sens 91.2 H* (<=51) pg/mL Total Protein 6.0 L (6.4-8.2) g/dL Albumin 2.7 L (3.4-5.0) g/dL Globulin 3.3 H (2.7-3.2) g/dL Albumin/Globulin Ratio 0.8 L (0.9-1.8) Result Diagrams: 11/06/21 06:55 11/06/21 06:55 Kwesi Results Last 24 hrs: Microbiology 11/04/21 23:37 Aerobic Blood Culture - Preliminary Blood - Venous NO GROWTH AFTER 1 DAY Anaerobic Blood Culture - Preliminary NO GROWTH AFTER 1 DAY 11/04/21 23:35 Aerobic Blood Culture - Preliminary Blood - Venous - Lab Draw NO GROWTH AFTER 1 DAY Anaerobic Blood Culture - Preliminary NO GROWTH AFTER 1 DAY Sepsis Event Note - Evaluation Sepsis Screening Result: No Definite Risk - Focused Exam Vital Signs: Vital Signs Temp Pulse Resp BP Pulse Ox 11/06/21 08:32 93 L 11/06/21 08:00 99.0 F 86 16 127/71 93 L 11/06/21 04:00 98.1 F 87 18 120/70 95 11/06/21 00:00 98.8 F 91 18 118/73 97 - Problem List & Annotations (1) Elevated liver enzymes SNOMED Code(s): 049415042 Code(s): R74.8 - ABNORMAL LEVELS OF OTHER SERUM ENZYMES Status: Acute Priority: High Current Visit: Yes (2) Right upper lobe pneumonia SNOMED Code(s): 605866484 Code(s): J18.9 - PNEUMONIA, UNSPECIFIED ORGANISM Status: Acute Priority: High Current Visit: Yes Qualifiers: Pneumonia type: due to unspecified organism Qualified Code(s): J18.9 - Pneumonia, unspecified organism (3) Elevated troponin SNOMED Code(s): 509836776, 879832634, 490238783 Code(s): R77.8 - OTHER SPECIFIED ABNORMALITIES OF PLASMA PROTEINS Status: Acute Priority: High Current Visit: Yes (4) Elevated white blood cell count SNOMED Code(s): 173822831, 031906062 Code(s): D72.829 - ELEVATED WHITE BLOOD CELL COUNT, UNSPECIFIED Status: Acute Priority: High Current Visit: Yes Qualifiers: Leukocytosis type: unspecified Qualified Code(s): D72.829 - Elevated white blood cell count, unspecified - Problem List Review Problem List Initiated/Reviewed/Updated: Yes - My Orders Last 24 Hours: My Active Orders 11/05/21 11:15 Lactated Ringers [Ringers, Lactated] 1,000 ml IV ASDIRECTED 11/05/21 20:00 Azithromycin [Zithromax] 500 mg Sodium Chloride 0.9% [Normal Saline AdvBag] 2 50 ml IV Q24H Enoxaparin [Lovenox] 40 mg SUBCUT Q24H cefTRIAXone [Rocephin] 1 gm IVPUSH Q24H 11/06/21 08:55 EKG Documentation Completion [RC] URGENT 11/07/21 07:00 BMP [BASIC METABOLIC PANEL,BMP] [CHEM] DAILY CBC WITH AUTO DIFF [HEME] DAILY CREATINE KINASE,CK [CHEM] DAILY HEPATIC FUNCTION PANEL,HFP [CHEM] DAILY INR,PT,PROTHROMBIN TIME [COAG] DAILY TROPONIN I HIGH SENSITIVITY [CHEM] DAILY - Plan Plan:: 11-05-2021: This is 30 year old female admitted with RUL pneumonia, elevated liver enzymes, elevated troponin, and elevated WBC. WBC has decreased from 14.4 to 11.6. AST 1090 to 679, ALT 1431 to 1163, INR 1.23 to 1.2, Troponin 141 to 164.3 to 132.8. Rocephin 1 gram and Azithromycin for pneumonia. Remains on 3 LPM oxygen via NC. See subjective and objective data. Upon reviewing laboratory results and physically assessing patient; consulted with Dr. De Los Santos, diamond blender, at [facility]. Reviewed lab findings and patient response to current treatment. Per his recommendation added a CK level which was 1108. He believes the elevated liver enzymes are related to a mild ischemic hepatic event and should respond well to hydration and antibiotics as prescribed. As per discussion we will change IV fluids from normal saline to LR and administer a 1 L bolus followed by maintenance LR infusion at 100 ml/hr. Will repeat CBC, BMP, INR, hepatic panel, and troponin levels daily to trend results. He does not feel the patient needs to be transferred and can be managed locally. Dr. De Los Santos stated that he would be available this weekend for further questions or concerns. Discussed current treatment recommendations and plan with the patient and her emergency contact, Joann Cong -mother. They are agreeable with current re commendations and plan. 11-06-2021: Lab results improving. WBC has normalized to 8.7. INR decrease to 1.16. CK level down to 398. AST and ALT 432 and 928 respectively. Troponin 91.2. Sodium has increased to 153. Preliminary blood cultures show no growth. An EKG was obtained today and ischemic changes on prior EKG not present. Continues to have tachycardia at times. Patient reported that she is feeling almost back to her norm, but remains to have periods of time in which she is tired. Plan to continue with maintenance fluids of LR at 100 ml/hr. Continue azithromycin and rocephin to treat pneumonia. Will continue to monitor on telemetry and check oxygen sats. Currently on RA, however oxygen can be applied to keep oxygen sats above 92%. Will repeat CBC, BMP, INR, CK, troponin level, and hepatic panel in the morning. This plan discussed with patient and she agreeable with treatment and management recommendations.
[2021-11-06] MEDS: Lactated Ringers 1,000 ML IV SCH ×2 (10:50→22:15)
[2021-11-06] MEDS: Azithromycin 500 MG in Sodium Chloride 0.9% 250 ML IV SCH (19:10)
[2021-11-06] MEDS: Enoxaparin 40 MG/0.4 ML Syringe SUBCUT SCH (19:10)
[2021-11-06] MEDS: cefTRIAXone 1 GM Vial IVPUSH SCH (19:10)
[2021-11-07] MEDS: busPIRone 5 MG Tab PO SCH ×2 (07:50→19:36)
[2021-11-07] MEDS: PARoxetine 20 MG Tab PO SCH (07:51)
[2021-11-07] MEDS: Lactated Ringers 1,000 ML IV SCH ×2 (08:34→18:41)
--- NOTE | 2021-11-07 11:10 | PN ---
DATE: 11/07/2021 S: Ms. Rankin is a 30-year-old female admitted and managed by Caitlin this weekend for pneumonia with associated ischemic hepatitis. She presented with elevated white count, CRP, and isolated liver enzymes. The rest of her LFTs including cholestatic markers were negative. She has been placed on IV antibiotics and for the most part has been doing well. She did not run any further temperature. She is off O2 and saturating in the mid to high 90s on room air. She has been ambulating and keeping her saturations above 90. Her lab work has shown marked improvement throughout her stay. Her white count is now normal. INR is fine and her creatinines went from 1.6 to 1.1. AST and ALT have steadily trended downward and her troponin, which was elevated at 141 on admit is now 53. O: GENERAL: The patient is pleasant, alert, and cooperative. She appears in no distress. HEENT: Grossly benign. NECK: Supple. Veins are flat. LUNGS: Lung sounds for the most part appear clear at this time, slightly diminished in the right mid and upper lobe but overall pretty adequate air movement. ABDOMEN: Soft and nontender. No right upper quadrant pain to palpation. EXTREMITIES: No peripheral edema seen. ASSESSMENT: 1. RIGHT UPPER LOBE PNEUMONIA. 2. ISCHEMIC HEPATITIS. 3. ELEVATED TROPONIN, IMPROVING. P: The patient clinically looks better. We will plan on home tomorrow if lab work continues to show improvement and clinically patient is doing well. MILTON/MONIKA /[id number]
[2021-11-07] MEDS: Enoxaparin 40 MG/0.4 ML Syringe SUBCUT SCH (19:36)
[2021-11-07] MEDS: Azithromycin 500 MG in Sodium Chloride 0.9% 250 ML IV SCH (19:36)
[2021-11-07] MEDS: cefTRIAXone 1 GM Vial IVPUSH SCH (19:36)
[2021-11-08] MEDS: PARoxetine 20 MG Tab PO SCH (07:51)
[2021-11-08] MEDS: busPIRone 5 MG Tab PO SCH (07:51)
--- NOTE | 2021-11-08 22:55 | DISCH ---
REASON FOR HOSPITALIZATION: Admission diagnoses: 1. Elevated liver enzymes. 2. Right upper lobe pneumonia. 3. Elevated troponin. 4. Elevated white count. DISCHARGE DIAGNOSIS: 1. RIGHT UPPER LOBE PNEUMONIA. 2. ISCHEMIC HEPATITIS. 3. ELEVATED TROPONIN, IMPROVING. HISTORY: The patient is a 30-year-old female who presented with cough, fever, and right-sided chest pain. Caitlin Alas evaluated her in the emergency room, ultimately admitted to the hospital after workup showed a right-sided pneumonia. She did have elevated troponin and liver enzymes. Cardiology was called and felt this could be monitored. She was put in the hospital on appropriate antibiotics and monitored. At the time of her admission, she had a white blood cell count of over 14,000 with a CRP of 16. Troponin was slightly elevated at 141, and her AST and ALT were both over a 1000. This was felt to be related to ischemic hepatitis related to her hypoxia and pneumonia as the rest of her cholestatic markers were negative. HOSPITAL COURSE: The patient was started on IV Rocephin and Levaquin. Over the course of her stay, she remained afebrile, her vitals were always normal, and she never required any supplemental O2. For the most part, her course was completely uncomplicated. Her liver enzymes improved steadily during her stay. Her AST is now minimally elevated and ALT went from 1400s down to 478 at this time, troponin is now into the normal range, and she is clinically looking very well. She was hydrated while here and her creatinine on admit which was 1.6 is now 1.1. We never did get a sputum sample, but blood cultures were negative on admit. The patient has been up ambulating, tolerating a full diet. She shows no clinical signs of impairment and is stable for discharge. She will follow up with Jacey Mayers her regular provider in the next week for repeat chest x- ray and lab. COMPLICATIONS: During her stay were none. CONSULTATIONS: None. DISPOSITION: Discharged home with instructions for 7 further days of Ceftin. ANDIE /[id number]
== END 2021-11-08 11:06 | disposition home or self-care (01) | DRG 139 ==
LOC: CC.ED 20:38 → CC.MS 11-05 00:24 → UNDOADMOB 11-05 00:24 → INTOOBSV 11-05 00:25 → OBSVTOIN 11-05 00:25 → CC.MS 11-05 00:44
PROVIDERS: ADMIT Nurse Practitioner Family; ATTEND Family Medicine
DX: J18.9 Pneumonia, unspecified organism (principal); K72.00 Acute and subacute hepatic failure without coma; R77.8 Other specified abnormalities of plasma proteins; F41.9 Anxiety disorder, unspecified; F32.A Depression, unspecified; Z20.822 Contact with and (suspected) exposure to COVID-19; Z90.49 Acquired absence of other specified parts of digestive tract; Z79.899 Other long term (current) drug therapy
CPT/HCPCS: 36415; 71275; 80048; 80053; 80076; 80305-QW; 80307; 81001; 81025; 82550; 83605; 84484; 85025; 85379; 85610; 86140; 87040; 93005; 94761; 96374; 96375; 99285-25; A9270-GY; J0456; J0696; J1650; J7030; J7050; J7120; Q9967; U0002